=== PATIENT | male | born 1945 | race Caucasian/White ===

== ENCOUNTER 2023-07-04 13:44 | Emergency (ER) | payer MEDICARE, SELFPAY ==
[2023-07-04 13:51] VITALS: BP 135/67
--- NOTE | 2023-07-04 13:58 | ED.GENMED ---
History of Present Illness
<Cristal Luna PA-C - Last Filed: 07/04/23 17:15>
General
Chief Complaint: Fall
Source: patient
Exam Limitations: none
Time Seen by Provider: 07/04/23 13:57
Nursing documentation reviewed up to this point in time: agreed with
Travel History
Have you had any contact with someone who has COVID-19?: No
Do you have any symptoms of coronavirus? Fever > 100 degrees, chills, cough, shortness of breath, sore throat, loss of taste or smell, muscle aches, or headache?: No
History of Present Illness
History of Present Illness:
77-year-old male with a past medical history of aortic stenosis, JOHNSON, CAD, hypertension, A-fib on Eliquis presenting emergency department today with concerns of a cut to his right arm following a fall. Patient states that he 'stood up too fast
'and subsequently felt a little dizzy and whoozy, which caused him to trip and fall onto a glass bowl. Patient states that he is aware that he will get dizzy if he stands up too fast and he has had this issue for a while. Patient broke the glass
bowl. Patient states that he did not hit his head and was to get up on his own and has no troubles ambulating. Patient denies any dizziness, chest pain, shortness of at this time. Patient also has associated right-sided abdominal pain. He states
that the pain is worse when he takes a deep breath. Patient denies neck pain.
Past History
<Cristal Luna PA-C - Last Filed: 07/04/23 17:15>
Past History
ED Past Medical History: CAD, HTN, Hypercholesterolemia and Other (Sleep apnea)
ED Past Surgical History: Cardiac (Stents X2) and Orthopedic (Laminectomy, Bebuild with cadaver bone,)
Social History
Tobacco: Smoker
Alcohol: Occasional
Drug: None
Personal:
Living: alone
Review of Systems
<Cristal Luna PA-C - Last Filed: 07/04/23 17:15>
Review of Systems
All Other Systems: ROS reviewed and negative except as documented in HPI and ROS
Phy Exam
<Cristal Luna PA-C - Last Filed: 07/04/23 17:15>
Physical Exam
Physical Exam:
General: Pt is awake and alert, No acute distress.
Skin: Warm and dry. 7 cm linear laceration on the posterior surface of the right forearm.
Head: Normocephalic, atraumatic
Cardiac: Regular rate and rhythm with no murmurs.
PV: No clubbing/cyanosis/edema.
Pulmonary: Lung sounds are clear in all lobes bilaterally without rales, rhonchi, or wheezes.
Abdomen: Abdomen is soft. There is a 6x5 cm area of ecchymosis on the right lower abdomen, it is tender to palpation.
MSK:
Patient seen spontaneously moving cervical spine, no tenderness to palpation of the cervical spine.
Neuro: Patient is AAOx3. CN 2-12 intact.
Course
<Cristal Luna PA-C - Last Filed: 07/04/23 17:15>
Orders/Labs/Results
Orders:
Orders
07/04/23 14:14
Electrocardiogram (*1) Urgent
Reason for Study: Vertigo / Dizzy
CT Abd/pelvis W Iv Cont Urgent
Comment:
Reason For Exam: right flank pain/abdominal pain following tramua
EKG- Treatment ONCE
07/04/23 14:26
Complete Blood Count/With Diff Urgent
Comprehensive Metabolic Panel Urgent
07/04/23 16:14
Troponin I Urgent
Abnormal Lab Results
07/04/23
14:26
WBC 4.3 L 10^3/uL
(4.8-10.8)
RBC 3.33 L 10^6/uL
(4.70-6.10)
Hgb 11.6 L g/dL
(13.0-18.0)
Hct 33.4 L %
(39.0-52.0)
MCV 100.3 H fL
(80.0-94.0)
MCH 34.8 H pg
(27.0-31.0)
RDW 16.2 H %
(11.5-14.5)
Plt Count 91 L 10^3/uL
(130-400)
MPV 10.7 H fL
(7.4-10.4)
Absolute Monos (auto) 0.7 H 10^3/uL
(0.1-0.6)
Monocytes % 16.6 H %
(1.7-9.3)
Chloride 111 H mmol/L
(98-107)
Glucose 121 H mg/dl
(70-99)
AST 62 H U/L
(17-59)
ALT 51 H U/L
(0-50)
Albumin 3.3 L g/dl
(3.5-5.0)
07/04/23 14:26
07/04/23 14:26
Vital Signs
Initial and Last Documented VS:
Initial Vital Signs
Temp Pulse Resp BP Pulse Ox
98.7 F 68 18 135/67 98
07/04/23 13:51 07/04/23 13:51 07/04/23 13:51 07/04/23 13:51 07/04/23 13:51
Last Documented Vital Signs
Temp Pulse Resp BP Pulse Ox
98.7 F 71 16 120/71 96
07/04/23 13:51 07/04/23 14:40 07/04/23 14:40 07/04/23 14:40 07/04/23 14:17
<Juan Miller Betsy, DO - Last Filed: 07/04/23 14:16>
Orders/Labs/Results
Orders:
Orders
07/04/23 14:14
Electrocardiogram (*1) Urgent
Reason for Study: Vertigo / Dizzy
CT Abd/pelvis W Iv Cont Urgent
Comment:
Reason For Exam: right flank pain/abdominal pain following tramua
EKG- Treatment ONCE
07/04/23 14:26
Complete Blood Count/With Diff Urgent
Comprehensive Metabolic Panel Urgent
07/04/23 16:14
Troponin I Urgent
Abnormal Lab Results
07/04/23
14:26
WBC 4.3 L 10^3/uL
(4.8-10.8)
RBC 3.33 L 10^6/uL
(4.70-6.10)
Hgb 11.6 L g/dL
(13.0-18.0)
Hct 33.4 L %
(39.0-52.0)
MCV 100.3 H fL
(80.0-94.0)
MCH 34.8 H pg
(27.0-31.0)
RDW 16.2 H %
(11.5-14.5)
Plt Count 91 L 10^3/uL
(130-400)
MPV 10.7 H fL
(7.4-10.4)
Absolute Monos (auto) 0.7 H 10^3/uL
(0.1-0.6)
Monocytes % 16.6 H %
(1.7-9.3)
Chloride 111 H mmol/L
(98-107)
Glucose 121 H mg/dl
(70-99)
AST 62 H U/L
(17-59)
ALT 51 H U/L
(0-50)
Albumin 3.3 L g/dl
(3.5-5.0)
07/04/23 14:26
07/04/23 14:26
Vital Signs
Initial and Last Documented VS:
Initial Vital Signs
Temp Pulse Resp BP Pulse Ox
98.7 F 68 18 135/67 98
07/04/23 13:51 07/04/23 13:51 07/04/23 13:51 07/04/23 13:51 07/04/23 13:51
Last Documented Vital Signs
Temp Pulse Resp BP Pulse Ox
98.7 F 71 16 120/71 96
07/04/23 13:51 07/04/23 14:40 07/04/23 14:40 07/04/23 14:40 07/04/23 14:17
Procedures
<Cristal Luna PA-C - Last Filed: 07/04/23 17:15>
Laceration Closure
Right Arm:
Status of Wound: clean
Size of Wound in cm: 7
Description of Wound Edges: sharp
Preparation: cleaned with saline and cleaned with SurClens
Anesthesia: 1% Lidocaine with epi
Revision/Debridement: routine- no revision
Wound exploration: explored to base- no FB
Type of Closure: single layer closure
Skin Closure Material: 4-0 prolene
Number of sutures: 12
Additional information:
Patient tolerated procedure well
<Cristal Luna PA-C - Last Filed: 07/04/23 17:15>
MDM/Problems Addressed
Differential Diagnosis Includes:
laceration, abrasion, muscular contusion, foreign body, renal laceration, rib fracture
MDM/Problems Addressed:
abdominal pain
arm laceration
Chronic conditions affecting care: HTN, CAD and COPD
Acute Exacerbation and/or Progression of Chronic Illness: HTN
<Cristal Luna PA-C - Last Filed: 07/04/23 17:15>
*Pulse Oximetry
Patient hypoxic: no
*Critical Care Note
Total Time (30-74mins, 75-104mins- exclusive of procedures): Not Applicable
Data Reviewed
Review of Other/Old Records Reveals: Records (reviewed ER physician documentation from 09/13/22) and Discharge Summary (reviewed discharge summary from 07/07/2022)
Source: patient and records
Prescriptions/Medications Considered But Not Given:
considered medication for pain however patient states he is comfortable at this time
<Cristal Luna PA-C - Last Filed: 07/04/23 17:15>
Patient Management
Escalation/DeEscalation of care consider admission/obs:
77-year-old male with a past medical history of aortic stenosis, JOHNSON, CAD, hypertension, A-fib on Eliquis presenting emergency department today with concerns of a cut to his right arm following a fall. On exam, patient has no tenderness to
palpation of right upper extremity. On exam, patient has a 7 cm laceration on his right arm which was repaired with 4-0 Prolene sutures and thoroughly irrigated. Patient also has ecchymosis on the right side of his abdomen with associated pleuritic
pain. Due to pain on exam and due to the fact that patient is anticoagulated, CT scan of abdomen was performed which was negative for any intraabdominal hematomas or other signs of trauma, negative for rib fracture.
Patient states he felt dizzy which caused him to fall because he stood up too fast but no longer has any dizziness or symptoms. Patient has no murmurs on exam, patient's EKG is normal sinus rhythm with no ischemic changes. Patient stable for
discharge. Patient aware of wound care precautions and patient will follow up with his director personal.
ED Attending Note
<SONIA Walker Last Filed: 07/04/23 17:15>
-
Portions of this chart may have been created with voice recognition software.� Occasional wrong word or��sound alike� substitutions may have occurred due to the inherent limitations of voice recognition software.
<Juan Meyer, DO - Last Filed: 07/04/23 14:16>
ED Attending Note
Patient seen and examined by attending physician: Yes
I performed the substantive portion of visit, reviewed & personally made and approve the management plan that is documented in note by myself or SARI.: Yes
I performed a history and physical exam of patient and discussed management with resident, I reviewed resident's note and agree with documented findings and plan of care.: Yes
ED Attending Note:
I evaluated the patient at bedside. The patient does have some mild tenderness in the right CVA region and right mid axillary line but no true abdominal tenderness. Given his advanced age on Eliquis will obtain CT imaging
Discharge Plan
Departure
Patient Disposition: Home (Routine Discharge)
Date of Disposition: 07/04/23
Time of Disposition: 16:49
Patient with high blood pressure during this ER visit?: Yes
Condition: Good
Discharge Problem:
Fall, Laceration
Instructions: Laceration Repair With Stitches (DC), BLOOD PRESSURE
Prescriptions:
No Action
One Daily Multi-Vit w-Mineral 1 EACH tablet
1 ea PO DAILY
atorvastatin 80 MG tablet
80 mg PO HS
clopidogrel 75 MG tablet
75 mg PO DAILY Qty: 30 3RF
turmeric 400 mg Capsule
400 mg PO DAILY
citalopram [Celexa] 40 mg Tablet
40 mg PO DAILY
omeprazole 20 mg Capsule,Delayed Release(Dr/Ec)
20 mg PO DAILY
aspirin 81 mg Tablet,Chewable
81 mg PO DAILY
ezetimibe [Zetia] 10 mg Tablet
10 mg PO DAILY
apple cider vinegar 500 mg Tablet
500 mg PO DAILY
alfuzosin 10 mg Tablet Extended Release 24 Hr
10 mg PO DAILY
Patient Comments:
09/13/22- patient bottle in room from 2020
Visbiome 112.5 billion cell Capsule
1 cap PO DAILY
Benefiber Healthy Shape 5 gram/7.4 gram Powder
5 g PO DAILY
turmeric 400 mg Capsule
400 mg PO DAILY
Eliquis 5 mg tablet
5 mg PO BID Qty: 60 0RF
metoprolol succinate [Toprol XL] 25 mg tablet extended release 24 hr
25 mg PO DAILY Qty: 30 6RF
Referrals:
Jorje Briggs MD [Family Provider] -
Activity Restrictions/Additional Instructions:
Your CT scan of the abdomen did not show any evidence of intra-abdominal trauma.
Please keep the wound clean and dry for 24 hours. After 24 hours, you can clean the wound with mild soap and water. You can apply bacitracin once daily over the wound and change the dressing once daily.
Please return to the emergency department or your primary care provider to have the stitches removed in 7 to 10 days.
Please return emergency department should you experience erythema surrounding the wound, rashes, purulent drainage from the wound, wound dehiscence, fevers or chills, no other concerning signs or symptoms.
Please follow-up with your primary care provider.
Interventions
Interventions:
*General Assessment Last Done: 07/04/23 17:05
*Nursing Disposition Last Done: 07/04/23 17:05
ED-Musculoskeletal Assessment Last Done: 07/04/23 14:00
ED- Neurological Assessment Last Done: 07/04/23 14:00
ED-Skin Assessment Last Done: 07/04/23 14:00
[2023-07-04 14:17] VITALS: BMI 30.6
[2023-07-04 14:40] VITALS: BP 120/71
[2023-07-04 14:44] LABS: % Basophils 0.9 % (0-2); % Immature Granulocytes 0.2 % (0-0.5); % Lymphocytes 30.5 % (20.5-51.1); % Monocytes 16.6 % (1.7-9.3); % Neutrophils 48.8 % (42.2-75.2); Absolute Eosinophils 0.1 10^3/uL (0-0.7); Absolute Lymphocytes 1.3 10^3/uL (1.2-3.4); Absolute Monocytes 0.7 10^3/uL (0.1-0.6); Absolute Neutrophils 2.1 10^3/uL (1.4-6.5); Hematocrit 33.4 % (39.0-52.0); Hemoglobin 11.6 g/dL (13.0-18.0); Mean Corp Hgb Conc. 34.7 g/dL (33.0-37.0); Mean Corpuscular Hgb 34.8 pg (27.0-31.0); Mean Corpuscular Volume 100.3 fL (80.0-94.0); Mean Platelet Volume 10.7 fL (7.4-10.4); Nucleated Red Blood Cells % 0 % (-); Platelet Count 91 10^3/uL (130-400); Red Blood Cell Count 3.33 10^6/uL (4.70-6.10); Red Cell Dist. Width 16.2 % (11.5-14.5); White Blood Cell Count 4.3 10^3/uL (4.8-10.8)
[2023-07-04 15:01] LABS: ALT (SGPT) 51 U/L (0-50); AST (SGOT) 62 U/L (17-59); Albumin 3.3 g/dl (3.5-5.0); Alkaline Phosphatase 121 U/L (38-126); Blood Urea Nitrogen 14 mg/dl (9-20); Carbon Dioxide 24 mmol/L (22-30); Chloride 111 mmol/L (98-107); Estimated Creatinine Clearance 42 ml/min; Glucose 121 mg/dl (70-99); Potassium 4.3 mmol/L (3.5-5.1); Sodium 136 mmol/L (135-145); Total Protein 6.4 g/dl (6.3-8.2); eGFR > 60.00
[2023-07-04 16:47] LABS: Troponin I < 0.012 ng/ml
== END 2023-07-04 17:05 | disposition home or self-care (01) ==
LOC: EMR 13:44
PROVIDERS: Physician Assistant; EMERGENCY PHYSICIAN Emergency Medicine; FAMILY PHYSICIAN Family Medicine
DX: S41.111A Laceration without foreign body of right upper arm, initial encounter (principal); W01.0XXA Fall on same level from slipping, tripping and stumbling without subsequent striking against object, initial encounter; I35.0 Nonrheumatic aortic (valve) stenosis; K75.81 Nonalcoholic steatohepatitis (NASH); I25.10 Atherosclerotic heart disease of native coronary artery without angina pectoris; I10 Essential (primary) hypertension; I48.91 Unspecified atrial fibrillation; E78.00 Pure hypercholesterolemia, unspecified; G47.30 Sleep apnea, unspecified; F17.200 Nicotine dependence, unspecified, uncomplicated; J44.9 Chronic obstructive pulmonary disease, unspecified; Z79.01 Long term (current) use of anticoagulants; Z95.5 Presence of coronary angioplasty implant and graft
CPT/HCPCS: 99284; 12002; 74177; 80053; 84484; 85025; 93005; Q9967

== ENCOUNTER → 2023-08-02 14:51 | Outpatient (REF) | payer MEDICARE, SELFPAY ==
[2023-08-02 15:57] LABS: % Basophils 0.9 % (0-2); % Eosinophils 1.5 % (0-6); % Immature Granulocytes 0.3 % (0-0.5); % Lymphocytes 26.2 % (20.5-51.1); % Monocytes 14.4 % (1.7-9.3); % Neutrophils 56.7 % (42.2-75.2); Absolute Eosinophils 0.1 10^3/uL (0-0.7); Absolute Lymphocytes 0.9 10^3/uL (1.2-3.4); Absolute Monocytes 0.5 10^3/uL (0.1-0.6); Absolute Neutrophils 1.9 10^3/uL (1.4-6.5); Hematocrit 34.3 % (39.0-52.0); Hemoglobin 12.2 g/dL (13.0-18.0); Mean Corp Hgb Conc. 35.6 g/dL (33.0-37.0); Mean Corpuscular Hgb 35.5 pg (27.0-31.0); Mean Corpuscular Volume 99.7 fL (80.0-94.0); Nucleated Red Blood Cells % 0 % (-); Platelet Count 70 10^3/uL (130-400); Red Blood Cell Count 3.44 10^6/uL (4.70-6.10); White Blood Cell Count 3.4 10^3/uL (4.8-10.8)
[2023-08-02 16:27] LABS: ALT (SGPT) 51 U/L (0-50); AST (SGOT) 54 U/L (17-59); Albumin 3.3 g/dl (3.5-5.0); Alkaline Phosphatase 139 U/L (38-126); Blood Urea Nitrogen 20 mg/dl (9-20); Calcium 9.2 mg/dl (8.4-10.2); Carbon Dioxide 21 mmol/L (22-30); Chloride 110 mmol/L (98-107); Glucose 122 mg/dl (70-99); Iron 150 ug/dl (49-181); Magnesium 1.9 mg/dl (1.6-2.3); Sodium 134 mmol/L (135-145); Total Bilirubin 0.9 mg/dl (0.2-1.3); Total Protein 6.5 g/dl (6.3-8.2); eGFR 56.23
[2023-08-02 16:59] LABS: TSH 1.03 uIU/ml (0.47-4.68)
[2023-08-02 17:34] LABS: Folate 14.3 ng/ml (2.76-20); Vitamin B12 > 1000 pg/ml (239-931)
== END ==
LOC: REG 14:51
PROVIDERS: ATTENDING PHYSICIAN Nurse Practitioner Family
DX: R42 Dizziness and giddiness (principal); R73.09 Other abnormal glucose; D64.9 Anemia, unspecified; R74.8 Abnormal levels of other serum enzymes; I95.9 Hypotension, unspecified
CPT/HCPCS: 36415; 80053; 82607; 82728; 82746; 83540; 83735; 84443; 85025

== ENCOUNTER 2023-08-03 13:04 | Emergency (ER) | payer MEDICARE, SELFPAY ==
[2023-08-03 13:11] VITALS: BP 116/74
[2023-08-03 13:42] LABS: % Basophils 0.5 % (0-2); % Eosinophils 1.7 % (0-6); % Immature Granulocytes 0.2 % (0-0.5); % Lymphocytes 23.8 % (20.5-51.1); % Monocytes 16.6 % (1.7-9.3); % Neutrophils 57.2 % (42.2-75.2); Absolute Eosinophils 0.1 10^3/uL (0-0.7); Absolute Monocytes 0.7 10^3/uL (0.1-0.6); Absolute Neutrophils 2.3 10^3/uL (1.4-6.5); Hematocrit 36.5 % (39.0-52.0); Hemoglobin 12.5 g/dL (13.0-18.0); Mean Corp Hgb Conc. 34.2 g/dL (33.0-37.0); Mean Corpuscular Hgb 34.8 pg (27.0-31.0); Mean Corpuscular Volume 101.7 fL (80.0-94.0); Mean Platelet Volume 10.6 fL (7.4-10.4); Nucleated Red Blood Cells % 0 % (-); Platelet Count 75 10^3/uL (130-400); Red Blood Cell Count 3.59 10^6/uL (4.70-6.10); Red Cell Dist. Width 15.3 % (11.5-14.5)
[2023-08-03 13:53] LABS: ALT (SGPT) 51 U/L (0-50); AST (SGOT) 58 U/L (17-59); Albumin 3.5 g/dl (3.5-5.0); Alkaline Phosphatase 151 U/L (38-126); Blood Urea Nitrogen 21 mg/dl (9-20); Calcium 9.2 mg/dl (8.4-10.2); Chloride 109 mmol/L (98-107); Glucose 139 mg/dl (70-99); Sodium 134 mmol/L (135-145); Total Bilirubin 0.9 mg/dl (0.2-1.3); Total Protein 6.6 g/dl (6.3-8.2); eGFR 51.45
[2023-08-03 14:09] LABS: Carbon Dioxide 21 mmol/L (22-30); Potassium 3.9 mmol/L (3.5-5.1)
--- NOTE | 2023-08-03 15:42 | ED.GENMED ---
History of Present Illness
General
Chief Complaint: Blood Pressure Problem
Time Seen by Provider: 08/03/23 15:42
Travel History
Have you had any contact with someone who has COVID-19?: No
Do you have any symptoms of coronavirus? Fever > 100 degrees, chills, cough, shortness of breath, sore throat, loss of taste or smell, muscle aches, or headache?: No
History of Present Illness
History of Present Illness:
HPI: Patient was sent to the ED by PMD due to concerns for low blood pressure. Apparently the office visit showed a blood pressure reading of 80/63. Daughter reports some weakness and may be some confusion as well. He apparently was here couple
weeks ago with stitches. There has been no other changes to his medication. He is not sure what medications that he takes but at that time he was on Toprol 25 mg daily as his only BP med.
EXAM:
GENERAL: Appears slightly weak
HEENT: Slightly dry oral mucosa
CARDIOVASCULAR: No murmurs, normal heart rate, regular rhythm, No chest wall tenderness
PULMONARY: No respiratory distress, breath sounds are clear and equal
ABDOMEN: Soft with no peritoneal signs, no tenderness
NEUROLOGIC: Excellent strength all extremities, no coordination deficits
PSYCHIATRIC: Appropriate mental status, normal insight and judgement
EXTREMITIES: Nontender, no edema, moves all extremities equally
SKIN: No rash, no lesions
TIME OF INITIAL ENCOUNTER: 4 PM
NUMBER AND COMPLEXITY OF PROBLEMS ADDRESSED AT THE ENCOUNTER
� Chronic conditions affecting care: Pancytopenia, CAD, COPD, aortic stenosis, high blood pressure, hyperlipidemia, nonalcoholic cirrhosis
� Acute Exacerbation and/or Progression of Chronic Illness: This is an acute problem
� Differential Diagnosis includes: Medication overuse, dehydration, vital signs not consistent with sepsis.
AMOUNT AND/OR COMPLEXITY OF DATA TO BE REVIEWED AND ANALYZED
� I performed an independent evaluation of and my interpretation is:
EKG:
CT:
X-rays:
Laboratory Studies: Patient is pancytopenic, creatinine is 1.4 but this is similar to prior. Negative leukocyte esterase and negative nitrate on urinalysis.
Other:
� Review of other/old records: I reviewed nuclear stress test from 01/16/2023 that indicated the stress EKG was equivocal for ischemia in the nuclear portion was normal, EF normal, and overall was considered low risk study
� Clinical information was obtained by an independent historian: I spoke to the daughter at bedside
� Prescriptions/Medications Considered but not given:
� Further testing considered but not performed:
RISK OF COMPLICATIONS AND/OR MORBIDITY OR MORTALITY OF PATIENT MANAGEMENT
� Social determinants of health affecting care: Lives at home
� Discussion with other providers:
� Escalation of care including admission/observation vs risk of discharge considered: Will give IV fluids and reassess however the patient's blood pressure has spontaneously improved upon arrival here. Patient's lab work is
relatively unremarkable. Unclear etiology of patient's symptoms. On reassessment, the patient has no significant changes. Vital signs are unremarkable at time of discharge.
Past History
Past History
ED Past Medical History: CAD, HTN, Hypercholesterolemia and Other (Sleep apnea)
ED Past Surgical History: Cardiac (Stents X2) and Orthopedic (Laminectomy, Bebuild with cadaver bone,)
Social History
Tobacco: Smoker
Alcohol: Occasional
Drug: None
Personal:
Living: alone
Phy Exam
Physical Exam
Physical Exam:
See HPI
Course
Orders/Labs/Results
Orders:
Orders
08/03/23 13:19
Complete Blood Count/With Diff Urgent
Comprehensive Metabolic Panel Urgent
08/03/23 15:43
0.9% Sodium Chloride 500 ml [Nss] 500 ml IV BOLUS
08/03/23 16:35
Urinalysis Reflex To Culture Urgent
Date Specimen was Collected: 08/03/23
Time Specimen was Collected: 16:30
Abnormal Lab Results
08/03/23 08/03/23
13:19 16:35
WBC 4.0 L 10^3/uL
(4.8-10.8)
RBC 3.59 L 10^6/uL
(4.70-6.10)
Hgb 12.5 L g/dL
(13.0-18.0)
Hct 36.5 L %
(39.0-52.0)
MCV 101.7 H fL
(80.0-94.0)
MCH 34.8 H pg
(27.0-31.0)
RDW 15.3 H %
(11.5-14.5)
Plt Count 75 L 10^3/uL
(130-400)
MPV 10.6 H fL
(7.4-10.4)
Absolute Lymphs (auto) 1.0 L 10^3/uL
(1.2-3.4)
Absolute Monos (auto) 0.7 H 10^3/uL
(0.1-0.6)
Monocytes % 16.6 H %
(1.7-9.3)
Sodium 134 L mmol/L
(135-145)
Chloride 109 H mmol/L
(98-107)
Carbon Dioxide 21 L mmol/L
(22-30)
BUN 21 H mg/dl
(9-20)
Creatinine 1.4 H mg/dL
(0.7-1.3)
Glucose 139 H mg/dl
(70-99)
ALT 51 H U/L
(0-50)
Alkaline Phosphatase 151 H U/L
(38-126)
Urine Ketones Trace A
(Negative)
Urine Bilirubin 1+ A
(Negative)
Urine Glucose Trace A
(Negative)
08/03/23 13:19
08/03/23 13:19
Vital Signs
Initial and Last Documented VS:
Initial Vital Signs
Temp Pulse Resp BP Pulse Ox
98.7 F 58 18 116/74 96
08/03/23 13:11 08/03/23 13:11 08/03/23 13:11 08/03/23 13:11 08/03/23 13:11
Last Documented Vital Signs
Temp Pulse Resp BP Pulse Ox
98.7 F 58 18 108/73 96
08/03/23 13:11 08/03/23 13:11 08/03/23 13:11 08/03/23 16:00 08/03/23 16:24
*Critical Care Note
Total Time (30-74mins, 75-104mins- exclusive of procedures): Not Applicable
ED Attending Note
-
Portions of this chart may have been created with voice recognition software.� Occasional wrong word or��sound alike� substitutions may have occurred due to the inherent limitations of voice recognition software.
Discharge Plan
Departure
Patient Disposition: Home (Routine Discharge)
Date of Disposition: 08/03/23
Time of Disposition: 17:23
Patient with high blood pressure during this ER visit?: Yes
Discharge Problem:
Acute hypotension
Prescriptions:
No Action
One Daily Multi-Vit w-Mineral 1 EACH tablet
1 ea PO DAILY
atorvastatin 80 MG tablet
80 mg PO HS
clopidogrel 75 MG tablet
75 mg PO DAILY Qty: 30 3RF
turmeric 400 mg Capsule
400 mg PO DAILY
citalopram [Celexa] 40 mg Tablet
40 mg PO DAILY
omeprazole 20 mg Capsule,Delayed Release(Dr/Ec)
20 mg PO DAILY
aspirin 81 mg Tablet,Chewable
81 mg PO DAILY
ezetimibe [Zetia] 10 mg Tablet
10 mg PO DAILY
apple cider vinegar 500 mg Tablet
500 mg PO DAILY
alfuzosin 10 mg Tablet Extended Release 24 Hr
10 mg PO DAILY
Patient Comments:
09/13/22- patient bottle in room from 2020
Visbiome 112.5 billion cell Capsule
1 cap PO DAILY
Benefiber Healthy Shape 5 gram/7.4 gram Powder
5 g PO DAILY
turmeric 400 mg Capsule
400 mg PO DAILY
Eliquis 5 mg tablet
5 mg PO BID Qty: 60 0RF
metoprolol succinate [Toprol XL] 25 mg tablet extended release 24 hr
25 mg PO DAILY Qty: 30 6RF
Referrals:
Jorje Briggs MD [Family Provider] -
Activity Restrictions/Additional Instructions:
Your blood pressure here has been normal. It has not been low. However since it was low earlier, I recommend that you cut the metoprolol succinate (Toprol) 25 mg in half so that you would be taking 12.5 mg each morning. Here if worse.
Interventions
Interventions:
*Risk Screen - Suicide Last Done: 08/03/23 13:11
*General Assessment Last Done: 08/03/23 13:11
*Neglect/Abuse Screening Last Done: 08/03/23 13:11
*Nursing Disposition Last Done: 08/03/23 18:22
ED- Cardiac Assessment Last Done: 08/03/23 16:11
ED- Neurological Assessment Last Done: 08/03/23 16:11
ED- Pulmonary Assessment Last Done: 08/03/23 16:11
Discharge Date and Time
Discharge Date/Time: 08/03/23 18:15
Print Language: SPANISH
[2023-08-03 15:54] VITALS: BP 110/75
[2023-08-03 16:00] VITALS: BP 108/73
[2023-08-03] MEDS: NSS 500 IV (16:07)
[2023-08-03 16:36] VITALS: BMI 28.9
[2023-08-03 16:45] LABS: Urine Albumin Trace (Neg - Trace); Urine Bilirubin 1+ (Negative); Urine Character Clear (Clear); Urine Color Yellow; Urine Glucose Trace (Negative); Urine Ketone Trace (Negative); Urine Leukocyte Negative (Negative); Urine Nitrite Negative (Negative); Urine Occult Blood Negative (Negative); Urine Specific Gravity 1.025 (<1.030); Urine Urobilinogen 1+ (Neg - 1+)
== END 2023-08-03 18:15 | disposition home or self-care (01) ==
LOC: EMR 13:04
PROVIDERS: Emergency Medicine; EMERGENCY PHYSICIAN Emergency Medicine; FAMILY PHYSICIAN Family Medicine
DX: I95.9 Hypotension, unspecified (principal); I25.10 Atherosclerotic heart disease of native coronary artery without angina pectoris; J44.89 Other specified chronic obstructive pulmonary disease; F17.200 Nicotine dependence, unspecified, uncomplicated; I35.0 Nonrheumatic aortic (valve) stenosis; I10 Essential (primary) hypertension; K74.60 Unspecified cirrhosis of liver; E78.00 Pure hypercholesterolemia, unspecified; Z95.5 Presence of coronary angioplasty implant and graft
CPT/HCPCS: 99284; 96360; 80053; 81003; 85025

== ENCOUNTER → 2023-10-04 15:13 | Outpatient (REF) | payer MEDICARE, SELFPAY ==
[2023-10-04 17:22] LABS: % Eosinophils 3.4 % (0-6); % Immature Granulocytes 0.3 % (0-0.5); % Lymphocytes 36.9 % (20.5-51.1); % Monocytes 16.9 % (1.7-9.3); % Neutrophils 41.5 % (42.2-75.2); Absolute Eosinophils 0.1 10^3/uL (0-0.7); Absolute Lymphocytes 1.1 10^3/uL (1.2-3.4); Absolute Monocytes 0.5 10^3/uL (0.1-0.6); Absolute Neutrophils 1.2 10^3/uL (1.4-6.5); Mean Corp Hgb Conc. 34.3 g/dL (33.0-37.0); Mean Corpuscular Hgb 34.5 pg (27.0-31.0); Mean Corpuscular Volume 100.6 fL (80.0-94.0); Mean Platelet Volume 11.5 fL (7.4-10.4); Nucleated Red Blood Cells % 0 % (-); Platelet Count 73 10^3/uL (130-400); Red Blood Cell Count 3.48 10^6/uL (4.70-6.10); Red Cell Dist. Width 14.8 % (11.5-14.5)
[2023-10-04 17:35] LABS: ALT (SGPT) 51 U/L (0-50); AST (SGOT) 56 U/L (17-59); Albumin 3.3 g/dl (3.5-5.0); Alkaline Phosphatase 126 U/L (38-126); Blood Urea Nitrogen 16 mg/dl (9-20); Calcium 9.4 mg/dl (8.4-10.2); Carbon Dioxide 27 mmol/L (22-30); Chloride 108 mmol/L (98-107); Glucose 101 mg/dl (70-99); Potassium 4.6 mmol/L (3.5-5.1); Sodium 140 mmol/L (135-145); Total Bilirubin 1.4 mg/dl (0.2-1.3); Total Protein 6.3 g/dl (6.3-8.2); eGFR 55.88
== END ==
LOC: REG 15:13
PROVIDERS: ATTENDING PHYSICIAN Nurse Practitioner Family
DX: D61.818 Other pancytopenia (principal); I95.9 Hypotension, unspecified; Z09 Encounter for follow-up examination after completed treatment for conditions other than malignant neoplasm; I95.89 Other hypotension
CPT/HCPCS: 36415; 80053; 85025

== ENCOUNTER → 2023-11-27 08:46 | Outpatient (REF) | payer MEDICARE, SELFPAY ==
[2023-11-27 10:17] LABS: % Basophils 0.7 % (0-2); % Eosinophils 6.1 % (0-6); % Lymphocytes 33.4 % (20.5-51.1); % Monocytes 15.9 % (1.7-9.3); % Neutrophils 43.9 % (42.2-75.2); Absolute Eosinophils 0.3 10^3/uL (0-0.7); Absolute Lymphocytes 1.5 10^3/uL (1.2-3.4); Absolute Monocytes 0.7 10^3/uL (0.1-0.6); Hemoglobin 11.6 g/dL (13.0-18.0); Mean Corp Hgb Conc. 35.2 g/dL (33.0-37.0); Mean Corpuscular Hgb 35.6 pg (27.0-31.0); Mean Corpuscular Volume 101.2 fL (80.0-94.0); Nucleated Red Blood Cells % 0 % (-); Red Blood Cell Count 3.26 10^6/uL (4.70-6.10); Red Cell Dist. Width 15.3 % (11.5-14.5); Reticulocyte Count 0.9 % (0.4-2.8); White Blood Cell Count 4.5 10^3/uL (4.8-10.8)
[2023-11-27 10:26] LABS: APTT 36.6 Sec (23.4-35.0); INR 1.53; PT 18.2 Sec (11.4-14.6)
[2023-11-27 10:27] LABS: Fibrinogen 193 MG/DL (199-459)
[2023-11-27 10:39] LABS: Mean Platelet Volume 11.8 fL (7.4-10.4); Platelet Count 76 10^3/uL (130-400)
[2023-11-27 10:51] LABS: Erythrocyte Sed Rate 42 mm/hour (0-20)
[2023-11-27 14:31] LABS: ALT (SGPT) 113 U/L (0-50); AST (SGOT) 88 U/L (17-59); Albumin 3.2 g/dl (3.5-5.0); Alkaline Phosphatase 222 U/L (38-126); Blood Urea Nitrogen 18 mg/dl (9-20); Direct Bilirubin 0.5 mg/dl (0.0-0.4); Iron 215 ug/dl (49-181); LDH 280 U/L (120-246); Total Bilirubin 1.4 mg/dl (0.2-1.3); Total Protein 6.2 g/dl (6.3-8.2)
[2023-11-27 14:40] LABS: Percent Saturation 89 % (20-50); Total Iron Binding Capacity 240 ug/dl (261-462)
[2023-11-27 14:44] LABS: PSA, Total - Screen 1.64 ng/ml (0.0-4.0)
[2023-11-27 15:19] LABS: Folate 16.4 ng/ml (2.76-20); Vitamin B12 > 1000 pg/ml (239-931)
[2023-11-28 22:20] LABS: Erythropoietin (EPO) 48 mU/mL (4-27)
[2023-11-28 23:12] LABS: Haptoglobin <10 mg/dL (30-200)
[2023-12-01 01:49] LABS: Albumin 3.35 g/dL (3.75-5.01); Alpha 1 Globulin 0.13 g/dL (0.19-0.46); Alpha 2 Globulin 0.53 g/dL (0.48-1.05); Free Kappa Light Chains,Quant 70.24 mg/L (3.30-19.40); Free Lambda Light Chains,Quant 45.45 mg/L (5.71-26.30); IgA 422 mg/dL (68-408); IgG 1347 mg/dL (768-1632); IgM 153 mg/dL (35-263); Immunofixation Electrophoresis IFE Done; Kappa/Lambda Fr Light Ratio 1.55 (0.26-1.65); Total Protein-Electrophoresis 6.2 g/dL (6.3-8.2)
== END ==
LOC: REG 08:46
PROVIDERS: ATTENDING PHYSICIAN Internal Medicine Hematology & Oncology; FAMILY PHYSICIAN Family Medicine
DX: D61.818 Other pancytopenia (principal); D64.9 Anemia, unspecified; Z12.5 Encounter for screening for malignant neoplasm of prostate
CPT/HCPCS: 36415; 80076; 82565; 82607; 82668; 82746; 82784; 83010; 83521; 83540; 83550; 83615; 84155; 84165; 84443; 84520; 85025; 85045; 85384; 85610; 85652; 85730; 86334; G0103

== ENCOUNTER → 2023-12-17 06:53 | Outpatient (REF) | payer MEDICARE, SELFPAY | LOC: RAD 06:53 | PROVIDERS: ATTENDING PHYSICIAN Internal Medicine Hematology & Oncology; FAMILY PHYSICIAN Family Medicine | DX: D61.818 Other pancytopenia (principal); D64.9 Anemia, unspecified | CPT/HCPCS: 76705 ==

== ENCOUNTER 2023-12-24 21:44 | Inpatient (IN) | payer MEDICARE, SELFPAY ==
[2023-12-24] VITALS (10 sets, daily range): BP systolic 111–142; BP diastolic 68–95; PULSE 101; BMI 34.3; BMI 30.7
[2023-12-24 18:12] LABS: % Basophils 0.2 % (0-2); % Eosinophils 0.2 % (0-6); % Immature Granulocytes 0.3 % (0-0.5); % Lymphocytes 11.1 % (20.5-51.1); % Monocytes 10.2 % (1.7-9.3); Absolute Lymphocytes 1.4 10^3/uL (1.2-3.4); Absolute Monocytes 1.3 10^3/uL (0.1-0.6); Hematocrit 33.4 % (39.0-52.0); Hemoglobin 12.3 g/dL (13.0-18.0); Mean Corp Hgb Conc. 36.8 g/dL (33.0-37.0); Mean Corpuscular Hgb 35.4 pg (27.0-31.0); Mean Corpuscular Volume 96.3 fL (80.0-94.0); Mean Platelet Volume 12.6 fL (7.4-10.4); Nucleated Red Blood Cells % 0 % (-); Platelet Count 113 10^3/uL (130-400); Red Blood Cell Count 3.47 10^6/uL (4.70-6.10); Red Cell Dist. Width 17.2 % (11.5-14.5); White Blood Cell Count 12.8 10^3/uL (4.8-10.8)
[2023-12-24 18:31] LABS: Albumin 2.9 g/dl (3.5-5.0); Alkaline Phosphatase 294 U/L (38-126); Blood Urea Nitrogen 82 mg/dl (9-20); Calcium 7.6 mg/dl (8.4-10.2); Carbon Dioxide 11 mmol/L (22-30); Chloride 103 mmol/L (98-107); Glucose 102 mg/dl (70-99); Potassium 5.4 mmol/L (3.5-5.1); Sodium 135 mmol/L (135-145); Total Bilirubin 5.4 mg/dl (0.2-1.3); Total Protein 6.3 g/dl (6.3-8.2); eGFR 5.87
--- NOTE | 2023-12-24 18:31 | EDRN ---
Lab just called for critical values of creat 8.5 and CO2 11 at this time.
[2023-12-24 18:51] LABS: ALT (SGPT) 599 U/L (0-50); AST (SGOT) 2155 U/L (17-59)
--- NOTE | 2023-12-24 19:05 | EDRN ---
At 1903 this RN TT'd Obdulia VIDAL about elevated Liver panel lab results. Harman VIDAL read the TT.
--- NOTE | 2023-12-24 19:09 | ED.GENMED ---
History of Present Illness
<MARCY Liu - Last Filed: 12/24/23 21:42>
General
Chief Complaint: Weakness
Source: patient and family
Exam Limitations: none
Time Seen by Provider: 12/24/23 18:39
History of Present Illness
History of Present Illness:
This is a 78 year old male that comes in with c/o diarrhea and weakness. Family states that he has had diarrhea and has not been eating or drinking. States that he seemed a little confused and was very weak. Patient states that he has felt SOB, abd
pain, nausea, vomiting, with the diarrhea. States that he vomited in the waiting room. Denies any fever, chills, chest pain, headache, dizziness, urinary burning.
Past History
<MARCY Liu - Last Filed: 12/24/23 21:42>
Past History
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
ED Past Surgical History: Cardiac (Stents X7), Orthopedic (Laminectomy, Rebuild with cadaver bone, Right shoulder surgery, bilateral knee replacements) and Other (cataracts, eye brow lift)
Social History
Tobacco: Former smoker
Alcohol: None
Drug: None
Personal:
Living: alone
Review of Systems
<MARCY Liu - Last Filed: 12/24/23 21:42>
Review of Systems
All Other Systems: ROS reviewed and negative except as documented in HPI and ROS
Constitutional: Reports no symptoms; Denies fever or chills
EENT: Reports no symptoms
Respiratory: Reports trouble breathing; Denies cough
Cardiac: Reports no symptoms; Denies chest pain
ABD/GI: Reports abdominal pain, nausea, vomiting and diarrhea
: Reports no symptoms; Denies dysuria, frequency or urgency
Musculoskeletal: Reports no symptoms
Skin: Reports no symptoms
Neurological: Reports no symptoms; Denies dizzy or headache
Psychiatric: Reports no symptoms
Phy Exam
<MARCY Liu - Last Filed: 12/24/23 21:42>
General Physical Exam
General Presentation: no apparent distress
General age: appears stated age
General Skin: warm and dry
General Habitus: elderly
General Mental: alert
General Hydration: dry mucous membranes
ENT Exam
ENT Exam: TM's normal, pharynx normal and neck supple
Eye Exam
Eye Exam: EOMI
Cardiovascular Exam
Cardiovascular Exam: regular rate/rhythm and normal peripheral pulses
Pulmonary Exam
Pulmonary Exam: lungs clear, no respiratory distress, no rales, chest non tender, no crackles, no rhonchi, no wheezing and no cough
Gastrointestinal Exam
Gastrointestinal Exam: soft, no pulsatile mass, ascites, tender (RUQ tenderness with palpation) and other (Very hypoactive bowel sounds)
Musculoskeletal Exam
Musculoskeletal Exam: full ROM and no edema
Skin Exam
Skin Exam: warm/dry and pallor
Psychiatric Exam
Psychiatric Exam: normal mood/affect
Course
<MARCY Liu - Last Filed: 12/24/23 21:42>
Orders/Labs/Results
Orders:
Orders
12/24/23 18:00
Acetaminophen Urgent
Comment: ADD ON
Complete Blood Count/With Diff Urgent
Comprehensive Metabolic Panel Urgent
Direct Bilirubin Urgent
Comment: ADD ON
Lipase Urgent
Comment: ADD ON
12/24/23 18:52
0.9% Sodium Chloride 1000 ml [Nss] 1,000 ml IV BOLUS
US Abdomen Complete/Upper Urgent
Comment:
Reason For Exam: Right upper abd pain
12/24/23 18:53
CR Chest - 2 Views Urgent
Comment:
Reason For Exam: SOB
12/24/23 19:11
Electrocardiogram (*1) Urgent
Reason for Study: Shortness of Breath
EKG- Treatment ONCE
Troponin I Urgent
12/24/23 19:19
Add On- LAB Urgent
Tests Added?: Direct starr
12/24/23 19:35
Add On- LAB Urgent
Tests Added?: lipase
12/24/23 19:51
COVID-19 Antigen Stat
Source: Nasal Swab
Lactic Acid Urgent
PT/INR [Prothrombin Time] Stat
PTT Urgent
12/24/23 20:30
Dextrose 5%/Water 1000 ml [D5w] 1,000 ml Sodium Bicarbonate 150 meq IV 200 mls/hr
12/24/23 20:36
Admit/Transfer Patient As Directed
Co-Sign Provider:
Level of Care: Inpatient admission
Assign to:: IMU- Intermediate Care
Physician / Group: teressa
Diagnosis: decompensated liver disease
Reason for Hospitalization: decompensated liver disease
Expected length of stay greater than two midnights?: Yes
ELOS- Estimated Length of Stay in days: 3
I certify the patient meets the requirements for IP care: Yes
12/24/23 20:37
PRN Pain Medication Management As Directed
May give lesser potent ordered pain med per pt: Yes
preference::
Protocol:: Medication orders for pain may be administered in a
manner that supports deferring to patient preference
when the pt is:
- Requesting an ordered lesser potent pain medication.
Least to most potent pain medications are defined
as: acetaminophen < NSAID < tramadol < opioids
(morphine, oxycodone, hydromorphone).
- Requesting a lesser dose of the same medication IF
ORDERED.
- Requesting a less intrusive route of administration
if both routes are prescribed by the provider (PO <
IV).
12/24/23 20:38
Code Status As Directed
Resuscitation Status: Full Code
12/24/23 20:54
Urinalysis Reflex To Culture Urgent
Date Specimen was Collected: 12/24/23
Time Specimen was Collected: 20:50
Urine Drug Abuse Screen Urgent
Date Specimen was Collected: 12/24/23
Time Specimen was Collected: 20:50
Urine Microscopic Reflex Cult Urgent
Urine Culture Urgent
MARVIN Source: U
Specimen Description:
Date Specimen was Collected: 12/24/23
Time Specimen was Collected: 20:50
12/24/23 21:00
Flush (0.9% Sodium Chloride) [Flush (Nss)] See Dose Instructions IV PER PROTOCOL
12/24/23 21:04
Ammonia Stat
12/24/23 21:09
0.9% Sodium Chloride 1000 ml [Nss] 1,000 ml IV BOLUS
12/24/23 21:18
Add On- LAB Urgent
Comments:: urine in lab
Tests Added?: urine drug screen
12/24/23 21:19
Hepatitis A IgM Antibody Urgent
Hepatitis B Core Ab, IgM Urgent
Hepatitis B Surface Antibody Urgent
Hepatitis B Surface Antigen Urgent
Hepatitis C Antibody Urgent
Blood Culture Urgent
MARVIN Source: Blood/Venous
Specimen Description:
12/24/23 21:27
Urine Creatinine Stat
Urine Potassium Stat
Urine Sodium Stat
12/24/23 21:30
Venous Blood Gas Urgent
%Oxygen/Room Air: ra
12/24/23 21:49
Blood Culture Routine
MARVIN Source: Blood/Venous
Specimen Description:
12/25/23 00:30
BMP [Basic Metabolic Panel] Stat
Abnormal Lab Results
12/24/23 12/24/23 12/24/23
18:00 19:11 19:51
WBC 12.8 H 10^3/uL
(4.8-10.8)
RBC 3.47 L 10^6/uL
(4.70-6.10)
Hgb 12.3 L g/dL
(13.0-18.0)
Hct 33.4 L %
(39.0-52.0)
MCV 96.3 H fL
(80.0-94.0)
MCH 35.4 H pg
(27.0-31.0)
RDW 17.2 H %
(11.5-14.5)
Plt Count 113 L 10^3/uL
(130-400)
MPV 12.6 H fL
(7.4-10.4)
Absolute Neuts (auto) 10.0 H 10^3/uL
(1.4-6.5)
Absolute Monos (auto) 1.3 H 10^3/uL
(0.1-0.6)
Neutrophils % 78.0 H %
(42.2-75.2)
Lymphocytes % 11.1 L %
(20.5-51.1)
Monocytes % 10.2 H %
(1.7-9.3)
PT 26.6 H Sec
(11.4-14.6)
APTT 51.0 H Sec
(23.4-35.0)
VBG pH
VBG pCO2
VBG pO2
VBG HCO3
Potassium 5.4 H mmol/L
(3.5-5.1)
Carbon Dioxide 11 L* mmol/L
(22-30)
BUN 82 H mg/dl
(9-20)
Creatinine 8.5 H* mg/dL
(0.7-1.3)
Glucose 102 H mg/dl
(70-99)
Lactic Acid 6.8 H* mmol/L
(0.7-2.0)
Calcium 7.6 L mg/dl
(8.4-10.2)
Total Bilirubin 5.4 H mg/dl
(0.2-1.3)
Direct Bilirubin 2.8 H mg/dl
(0.0-0.4)
AST 2155 H* U/L
(17-59)
ALT 599 H* U/L
(0-50)
Alkaline Phosphatase 294 H U/L
(38-126)
Ammonia
Troponin I 0.456 H* ng/ml
Albumin 2.9 L g/dl
(3.5-5.0)
Lipase 872 H U/L
(23-300)
Urine Ketones
Ur Occult Blood Reflex
Urine Nitrite (Reflex)
Urine Bilirubin
Leukocyte Esterase Rfl
Urine RBC
Urine Bacteria (Reflex)
Urine Glucose
Urine Albumin (Reflex)
Acetaminophen < 10 L ug/ml
(10-30)
12/24/23 12/24/23 12/24/23
20:54 21:04 21:30
WBC
RBC
Hgb
Hct
MCV
MCH
RDW
Plt Count
MPV
Absolute Neuts (auto)
Absolute Monos (auto)
Neutrophils %
Lymphocytes %
Monocytes %
PT
APTT
VBG pH 7.26 L
(7.32-7.43)
VBG pCO2 32 L mmHg
(35-48)
VBG pO2 54 H mmHg
(30-50)
VBG HCO3 14.4 L mmol/L
(22-27)
Potassium
Carbon Dioxide
BUN
Creatinine
Glucose
Lactic Acid
Calcium
Total Bilirubin
Direct Bilirubin
AST
ALT
Alkaline Phosphatase
Ammonia 41 H umol/L
(9-30)
Troponin I
Albumin
Lipase
Urine Ketones Trace A
(Negative)
Ur Occult Blood Reflex 4+ A
(Negative)
Urine Nitrite (Reflex) Positive A
(Negative)
Urine Bilirubin 2+ A
(Negative)
Leukocyte Esterase Rfl Trace A
(Negative)
Urine RBC 60-70 A /HPF
(0-2)
Urine Bacteria (Reflex) Moderate A
(Negative)
Urine Glucose 1+ A
(Negative)
Urine Albumin (Reflex) 3+ A
(Neg - Trace)
Acetaminophen
12/24/23 18:00
12/24/23 18:00
Leukocytosis, H/H slightly low. Anemia. thrombocytopenia, Slight Hyperkalemia, carbon dioxide very low, acute renal failure, Hypocalcemic, Total starr elevation. Acute elevation of the AST/ALT, alk phos elevation. Albumin low. Lipase elevated to
872, Acetaminophen <10. Direct starr elevation to 2.8, Troponin elevated 0.456 (possible due to renal failure), lactic 6.8, PT 26.6 with INR 2.47. Urine questionable for infection.
Vital Signs
Initial and Last Documented VS:
Initial Vital Signs
Temp Pulse Resp BP Pulse Ox
97.1 F 104 18 132/89 96
12/24/23 17:50 12/24/23 17:50 12/24/23 17:50 12/24/23 17:50 12/24/23 17:50
Last Documented Vital Signs
Temp Pulse Resp BP Pulse Ox
97.1 F 109 22 125/68 93
12/24/23 17:50 12/24/23 21:10 12/24/23 21:10 12/24/23 21:10 12/24/23 21:10
<Kayla Arnold MD - Last Filed: 12/24/23 21:25>
Orders/Labs/Results
Orders:
Orders
12/24/23 18:00
Acetaminophen Urgent
Comment: ADD ON
Complete Blood Count/With Diff Urgent
Comprehensive Metabolic Panel Urgent
Direct Bilirubin Urgent
Comment: ADD ON
Lipase Urgent
Comment: ADD ON
12/24/23 18:52
0.9% Sodium Chloride 1000 ml [Nss] 1,000 ml IV BOLUS
US Abdomen Complete/Upper Urgent
Comment:
Reason For Exam: Right upper abd pain
12/24/23 18:53
CR Chest - 2 Views Urgent
Comment:
Reason For Exam: SOB
12/24/23 19:11
Electrocardiogram (*1) Urgent
Reason for Study: Shortness of Breath
EKG- Treatment ONCE
Troponin I Urgent
12/24/23 19:19
Add On- LAB Urgent
Tests Added?: Direct starr
12/24/23 19:35
Add On- LAB Urgent
Tests Added?: lipase
12/24/23 19:51
COVID-19 Antigen Stat
Source: Nasal Swab
Lactic Acid Urgent
PT/INR [Prothrombin Time] Stat
PTT Urgent
12/24/23 20:30
Dextrose 5%/Water 1000 ml [D5w] 1,000 ml Sodium Bicarbonate 150 meq IV 200 mls/hr
12/24/23 20:36
Admit/Transfer Patient As Directed
Co-Sign Provider:
Level of Care: Inpatient admission
Assign to:: IMU- Intermediate Care
Physician / Group: teressa
Diagnosis: decompensated liver disease
Reason for Hospitalization: decompensated liver disease
Expected length of stay greater than two midnights?: Yes
ELOS- Estimated Length of Stay in days: 3
I certify the patient meets the requirements for IP care: Yes
12/24/23 20:37
PRN Pain Medication Management As Directed
May give lesser potent ordered pain med per pt: Yes
preference::
Protocol:: Medication orders for pain may be administered in a
manner that supports deferring to patient preference
when the pt is:
- Requesting an ordered lesser potent pain medication.
Least to most potent pain medications are defined
as: acetaminophen < NSAID < tramadol < opioids
(morphine, oxycodone, hydromorphone).
- Requesting a lesser dose of the same medication IF
ORDERED.
- Requesting a less intrusive route of administration
if both routes are prescribed by the provider (PO <
IV).
12/24/23 20:38
Code Status As Directed
Resuscitation Status: Full Code
12/24/23 20:54
Urinalysis Reflex To Culture Urgent
Date Specimen was Collected: 12/24/23
Time Specimen was Collected: 20:50
Urine Drug Abuse Screen Urgent
Date Specimen was Collected: 12/24/23
Time Specimen was Collected: 20:50
Urine Microscopic Reflex Cult Urgent
Urine Culture Urgent
MARVIN Source: U
Specimen Description:
Date Specimen was Collected: 12/24/23
Time Specimen was Collected: 20:50
12/24/23 21:00
Flush (0.9% Sodium Chloride) [Flush (Nss)] See Dose Instructions IV PER PROTOCOL
12/24/23 21:04
Ammonia Stat
12/24/23 21:09
0.9% Sodium Chloride 1000 ml [Nss] 1,000 ml IV BOLUS
12/24/23 21:18
Add On- LAB Urgent
Comments:: urine in lab
Tests Added?: urine drug screen
12/24/23 21:19
Hepatitis A IgM Antibody Urgent
Hepatitis B Core Ab, IgM Urgent
Hepatitis B Surface Antibody Urgent
Hepatitis B Surface Antigen Urgent
Hepatitis C Antibody Urgent
Blood Culture Urgent
MARVIN Source: Blood/Venous
Specimen Description:
12/24/23 21:27
Urine Creatinine Stat
Urine Potassium Stat
Urine Sodium Stat
12/24/23 21:30
Venous Blood Gas Urgent
%Oxygen/Room Air: ra
12/24/23 21:49
Blood Culture Routine
MARVIN Source: Blood/Venous
Specimen Description:
12/25/23 00:30
BMP [Basic Metabolic Panel] Stat
Abnormal Lab Results
12/24/23 12/24/23 12/24/23
18:00 19:11 19:51
WBC 12.8 H 10^3/uL
(4.8-10.8)
RBC 3.47 L 10^6/uL
(4.70-6.10)
Hgb 12.3 L g/dL
(13.0-18.0)
Hct 33.4 L %
(39.0-52.0)
MCV 96.3 H fL
(80.0-94.0)
MCH 35.4 H pg
(27.0-31.0)
RDW 17.2 H %
(11.5-14.5)
Plt Count 113 L 10^3/uL
(130-400)
MPV 12.6 H fL
(7.4-10.4)
Absolute Neuts (auto) 10.0 H 10^3/uL
(1.4-6.5)
Absolute Monos (auto) 1.3 H 10^3/uL
(0.1-0.6)
Neutrophils % 78.0 H %
(42.2-75.2)
Lymphocytes % 11.1 L %
(20.5-51.1)
Monocytes % 10.2 H %
(1.7-9.3)
PT 26.6 H Sec
(11.4-14.6)
APTT 51.0 H Sec
(23.4-35.0)
VBG pH
VBG pCO2
VBG pO2
VBG HCO3
Potassium 5.4 H mmol/L
(3.5-5.1)
Carbon Dioxide 11 L* mmol/L
(22-30)
BUN 82 H mg/dl
(9-20)
Creatinine 8.5 H* mg/dL
(0.7-1.3)
Glucose 102 H mg/dl
(70-99)
Lactic Acid 6.8 H* mmol/L
(0.7-2.0)
Calcium 7.6 L mg/dl
(8.4-10.2)
Total Bilirubin 5.4 H mg/dl
(0.2-1.3)
Direct Bilirubin 2.8 H mg/dl
(0.0-0.4)
AST 2155 H* U/L
(17-59)
ALT 599 H* U/L
(0-50)
Alkaline Phosphatase 294 H U/L
(38-126)
Ammonia
Troponin I 0.456 H* ng/ml
Albumin 2.9 L g/dl
(3.5-5.0)
Lipase 872 H U/L
(23-300)
Urine Ketones
Ur Occult Blood Reflex
Urine Nitrite (Reflex)
Urine Bilirubin
Leukocyte Esterase Rfl
Urine RBC
Urine Bacteria (Reflex)
Urine Glucose
Urine Albumin (Reflex)
Acetaminophen < 10 L ug/ml
(10-30)
12/24/23 12/24/23 12/24/23
20:54 21:04 21:30
WBC
RBC
Hgb
Hct
MCV
MCH
RDW
Plt Count
MPV
Absolute Neuts (auto)
Absolute Monos (auto)
Neutrophils %
Lymphocytes %
Monocytes %
PT
APTT
VBG pH 7.26 L
(7.32-7.43)
VBG pCO2 32 L mmHg
(35-48)
VBG pO2 54 H mmHg
(30-50)
VBG HCO3 14.4 L mmol/L
(22-27)
Potassium
Carbon Dioxide
BUN
Creatinine
Glucose
Lactic Acid
Calcium
Total Bilirubin
Direct Bilirubin
AST
ALT
Alkaline Phosphatase
Ammonia 41 H umol/L
(9-30)
Troponin I
Albumin
Lipase
Urine Ketones Trace A
(Negative)
Ur Occult Blood Reflex 4+ A
(Negative)
Urine Nitrite (Reflex) Positive A
(Negative)
Urine Bilirubin 2+ A
(Negative)
Leukocyte Esterase Rfl Trace A
(Negative)
Urine RBC 60-70 A /HPF
(0-2)
Urine Bacteria (Reflex) Moderate A
(Negative)
Urine Glucose 1+ A
(Negative)
Urine Albumin (Reflex) 3+ A
(Neg - Trace)
Acetaminophen
12/24/23 18:00
12/24/23 18:00
Vital Signs
Initial and Last Documented VS:
Initial Vital Signs
Temp Pulse Resp BP Pulse Ox
97.1 F 104 18 132/89 96
12/24/23 17:50 12/24/23 17:50 12/24/23 17:50 12/24/23 17:50 12/24/23 17:50
Last Documented Vital Signs
Temp Pulse Resp BP Pulse Ox
97.1 F 109 22 125/68 93
12/24/23 17:50 12/24/23 21:10 12/24/23 21:10 12/24/23 21:10 12/24/23 21:10
<MARCY Liu - Last Filed: 12/24/23 21:42>
MDM/Problems Addressed
Differential Diagnosis Includes:
Severe dehydration, gallbladder disease, abnormal labs
MDM/Problems Addressed:
This is a 78 year old male that comes in with c/o diarrhea, weakness. Told that the patient has not been eating or drinking. Patient vomited while waiting in the ER waiting room.
Will get labs, US and admit. Explained to patient and family that the patient is in renal failure and that his Liver enzyme were still pending. Will give IV fluids and get US. Hospitalist notified.
Dr Arnold spoke with Dr. Franklyn Livingston and they do not have a bed until tomorrow. Will admit over night here and transfer in the morning. Hospitalist aware. Transfer sheet signed and scanned into the chart.
Chronic conditions affecting care:
Cirrhosis liver, JOHNSON,
Acute Exacerbation and/or Progression of Chronic Illness:
liver cirrhosis, JOHNSON
<MARCY Liu - Last Filed: 12/24/23 21:42>
*Radiology
Radiology exam reviewed: preliminary read by ED provider (chest- negative for acute cardiopulmonary disease. ) and radiology read reviewed (US-Cirrhosis with moderate ascites. Cholelithiasis with thickening of the gallbladder wall to 3.4mm likely
due to the presence of ascites rather than reflecting cholecystitis. )
*Pulse Oximetry
Patient hypoxic: no
*EKG
Interpreted by ED Provider?: Yes
Heart Rate: 112
Rate: tachycardiac
Rhythm: sinus
[place]: left axis deviation
Interval: normal interval
QRS Pattern: low voltage
Ischemia: no ischemia
*Log Raft Worker Interpretation
Rate: tachycardiac
Heart Rate: 111
Rhythm: sinus tachycardia
*Critical Care Note
Total Time (30-74mins, 75-104mins- exclusive of procedures): Not Applicable
ED Attending Note
<MARCY Liu - Last Filed: 12/24/23 21:42>
-
Portions of this chart may have been created with voice recognition software.� Occasional wrong word or��sound alike� substitutions may have occurred due to the inherent limitations of voice recognition software.
<Kayla Arnold MD - Last Filed: 12/24/23 21:25>
ED Attending Note
Patient seen and examined by attending physician: Yes
I performed the substantive portion of visit, reviewed & personally made and approve the management plan that is documented in note by myself or SARI.: Yes
ED Attending Note:
Case discussed with Dr. Jose Brandon while at [facility] regarding patient condition, history, vitals, labs, etc. Recommendation is for patient to be transferred to [facility] however bed not expected to be available overnight and therefore
recommended the patient be admitted to the hospital in the meantime. Recommendation is to also add a full hepatitis panel, infectious workup, and at some point an ultrasound abd with Dopplers. Continue IV fluids. Patient is not considered a
transplant candidate. No further recommendations at this time.
Discharge Plan
Departure
Patient Disposition: [facility]
Date of Disposition: 12/24/23
Time of Disposition: 19:09
Patient with high blood pressure during this ER visit?: Yes
Condition: Good
Covid-19: Not Applicable
Discharge Problem:
Acute renal failure, acute elevated liver enzymes, Pancreatitis, Cholelithiasis
Prescriptions:
No Action
One Daily Multi-Vit w-Mineral 1 EACH tablet
1 ea PO DAILY
atorvastatin 80 MG tablet
80 mg PO HS
clopidogrel 75 MG tablet
75 mg PO DAILY Qty: 30 3RF
turmeric 400 mg Capsule
400 mg PO DAILY
citalopram [Celexa] 40 mg Tablet
40 mg PO DAILY
ezetimibe [Zetia] 10 mg Tablet
10 mg PO DAILY
alfuzosin 10 mg Tablet Extended Release 24 Hr
10 mg PO DAILY
Visbiome 112.5 billion cell Capsule
1 cap PO DAILY
Benefiber Healthy Shape 5 gram/7.4 gram Powder
5 g PO DAILY
metoprolol succinate [Toprol XL] 25 mg tablet extended release 24 hr
25 mg PO DAILY Qty: 30 6RF
finasteride 5 mg Tablet
5 mg PO DAILY
Eliquis 5 mg tablet
2.5 mg PO DAILY
Referrals:
Jorje Briggs MD [Family Provider] -
Hospital Transfer
Other hospital: [facility]
I certify that the patient requires transfer: Yes
Discussed case with accepting physician: Dr Estes
Reason for transfer: higher level of care and specialties available
Interventions
Interventions:
*Risk Screen - Suicide Last Done: 12/24/23 18:42
*General Assessment Last Done: 12/24/23 18:41
*Neglect/Abuse Screening Last Done: 12/24/23 18:42
ED- Fall Risk Assessment Last Done: 12/24/23 18:43
*ED COVID-19 Vaccine History Last Done: 12/24/23 18:41
ED- Cardiac Assessment Last Done: 12/24/23 19:10
ED- Neurological Assessment Last Done: 12/24/23 19:10
ED- Pulmonary Assessment Last Done: 12/24/23 19:10
Discharge Date and Time
Print Language: PORTUGUESE
--- NOTE | 2023-12-24 19:32 | HPS.HSE ---
Family Physician
-
Family Physician: Jorje Briggs
Chief Complaint
-
abdominal pain
n/v/d
History of Present Illness
78 year old with PMH for CAD, COPD, CVA< ERD< HTN, HLD, sleep apnea, Narcolepsy, cirrhosis of Liver, JOHNSON presented to us with diarrhea, nausea, vomiting for past few days. patient stated left sided abdominal pain. today he noticed blood in his
stool. patient stated poor appetite. he was very weak and was not able to walk to the car. patient denied PATEL, dizzy or syncopal episode. denied fever, chills, runny nose, congestion, cough. denied dysuria or hematuria.
In ER patient was noted in LENARD and elevated transaminase. admitting for further management.
Medical History
Past Medical History
Past Medical History: Reports Other
Additional Past Medical History:
Inflammatory bowel disease
BPH
Hypertension
Coronary artery disease
Thoracic aortic aneurysm
Obstructive sleep apnea
Past Surgical History: Reports Other
Additional Past Surgical History:
Cardiac stent
Lumbar laminectomy
cataract surgery
knee replacement
Social History
Tobacco: Former Smoker
Alcohol: Former
Drug: None
Personal: Single
Living: Alone
Family History
Family History: Not pertinent
Allergies / Home Medications
Allergies reflects when Allergies were last updated in [facility].
Home Medications with original date entered in [facility]
Allergy/Medication List:
Allergies
Allergy/AdvReac Type Severity Reaction Status Date / Time
Sulfa (Sulfonamide Allergy Unknown Unknown Verified 12/24/23 17:50
Antibiotics)
Home Medications
atorvastatin 80 mg tablet 80 mg PO HS High cholesterol 03/07/16
multivitamin with minerals-ferrous sulfate 4.5 mg iron tablet (One Daily Multivitamins with Minerals) 1 ea PO DAILY Supplement 11/15/16
clopidogrel 75 mg tablet 75 mg PO DAILY ##30 03/09/16
turmeric 400 mg capsule 400 mg PO DAILY Supplement 07/01/22
Lactobac no.2-Bifidobac no.1-S. thermo 112.5 billion cell capsule (Visbiome) 1 cap PO DAILY 09/13/22
alfuzosin 10 mg tablet,extended release 24 hr 10 mg PO DAILY 09/13/22
citalopram 40 mg tablet (Celexa) 40 mg PO DAILY 09/13/22
ezetimibe 10 mg tablet (Zetia) 10 mg PO DAILY 09/13/22
metoprolol succinate 25 mg tablet,extended release 24 hr (Toprol XL) 25 mg PO DAILY #30 tabs 09/13/22
wheat dextrin 5 gram/7.4 gram oral powder (Benefiber Healthy Shape) 5 g PO DAILY 09/13/22
apixaban 5 mg tablet (Eliquis) 2.5 mg PO DAILY 12/24/23
finasteride 5 mg tablet 5 mg PO DAILY 12/24/23
Review of Systems
-
Constitutional: Reports No Symptoms
EENT: Reports No Symptoms
Respiratory: Reports Trouble Breathing
Cardiac: Reports No Symptoms
Abdomen/GI: Reports Abdominal Pain, Nausea, Vomiting and Diarrhea
: Reports No Symptoms
Musculoskeletal: Reports No Symptoms
Skin: Reports No Symptoms
Neurological: Reports Weakness
Endocrine: Reports No Symptoms
Hematologic/Lymphatic: Reports No Symptoms
Psych: Reports No Symptoms
Physical Exam
Vital Signs
Vital Signs
Temp Pulse Resp BP Pulse Ox
97.1 F 110 25 111/81 96
12/24/23 17:50 12/24/23 19:00 12/24/23 19:00 12/24/23 19:00 12/24/23 18:45
Physical Exam
General: Well Developed, Well Nourished and No Apparent Distress
HEENT: NormoCephalic, Moist mucous membranes and Atraumatic
Respiratory: Clear
Cardiac: S1/S2 and Regular Rhythm; No Murmur or Rub
GI: Normal Bowel Sounds, Tender and Distended; No Organomegaly
Rectal: Deferred by Provider
Musculoskeletal: No Clubbing, No Cyanosis and No Edema
Skin: No Rash
Neuro: AO x 3 and Nonfocal/grossly intact
Psych: Calm
Laboratory Results
-
12/24/23 18:00
12/24/23 18:00
Laboratory Results
Total Bilirubin 5.4 mg/dl (0.2-1.3) H 12/24/23 18:00
AST 2155 U/L (17-59) H* 12/24/23 18:00
ALT 599 U/L (0-50) H* 12/24/23 18:00
Alkaline Phosphatase 294 U/L (38-126) H 12/24/23 18:00
Data Reviewed
-
Diagnostic Radiology: Report Reviewed by me
Lab Data: Labs Reviewed by me
Impression/Plan
-
# Diarrhea/poor oral intake/acute decompensation of liver disease
# History of cirrhosis/JOHNSON
-T. bili is 5.4 AST 2155, ALT 599,lipase 872
-wbc 12.8,tachycardia
-Abdominal ultrasound with Cirrhosis with moderate ascites.Cholelithiasis with thickening of the gallbladder wall to 3.4 mm likely due to the presence of ascites rather than reflecting cholecystitis
-consult GI
-will keep patient NPO
-obtain hep panel,blood culture
-obtain Doppler US
-ctm
# Anemia of chronic disease/chronic thrombocytopenia
-Hemoglobin stable at 12.3 , platelets 113
-continue to monitor
# Acute renal failure /hyperkalemia/metabolic acidosis
-K5.4, CO2 11, creatinine 0.5, BUN 82
-received normal saline in ER
-sodium bicarb infusing
-trend BMP
-nephrology consulted
#lactic acidosis likely from LENARD
-lactic acid 6.8
-trend lactic
#elevated trop NSTEMI
-trend trop
-cardiology consulted
#
-Chronic.
#HTN
-BP stable
-metoprolol continued with hold parameter
#HLD
-hold statin
-Zetia continued
#anxiety
-Celexa continued
#CAD
-s/p cardiac stents
-Plavix continued
#paroxysmal atrial fib
-hold eliquis due to elevated iNR and blood in stool
-EKG with sinus tachycardia
-metoprolol continued
#DELROY with narcoleptic syndrome
-Chronic.
-CPAP at 10 cmH2O
#BPH
-alfuzosin,finasteride continued
#DVT prophylaxis
-scd
#CODE status
-full code
patient waiting for transfer to [facility].
--- NOTE | 2023-12-24 19:48 | EDRN ---
Adelita VIDAL in w/ family and pt at this time.
[2023-12-24 19:49] LABS: Acetaminophen < 10 ug/ml (10-30); Lipase 872 U/L (23-300)
[2023-12-24] MEDS: NSS 1000 IV ×2 (19:50→21:36)
[2023-12-24 19:51] LABS: Direct Bilirubin 2.8 mg/dl (0.0-0.4)
[2023-12-24 19:53] LABS: Troponin I 0.456 ng/ml
[2023-12-24 20:16] LABS: Lactic Acid 6.8 mmol/L (0.7-2.0)
[2023-12-24 20:17] LABS: INR 2.47; PT 26.6 Sec (11.4-14.6)
[2023-12-24 20:23] LABS: COVID-19 Antigen Negative (Negative)
--- NOTE | 2023-12-24 20:25 | EDRN ---
Hospitalist is in room w/pt.
--- NOTE | 2023-12-24 20:32 | EDRN ---
Pharmacy called for bicarb IVF.
[2023-12-24 21:03] LABS: Urine Albumin 3+ (Neg - Trace); Urine Bilirubin 2+ (Negative); Urine Character Very Cloudy (Clear); Urine Color Brown; Urine Glucose 1+ (Negative); Urine Ketone Trace (Negative); Urine Leukocyte Trace (Negative); Urine Nitrite Positive (Negative); Urine Occult Blood 4+ (Negative); Urine Urobilinogen Negative (Neg - 1+)
[2023-12-24] MEDS: SODIUM BICARBONATE 1150 MEQ IV (21:10)
[2023-12-24 21:12] LABS: Urine Bacteria Moderate (Negative); Urine Squamous Cell 0-2 /LPF (Few)
[2023-12-24 21:13] LABS: Urine Red Blood Cell 60-70 /HPF (0-2); Urine White Cell 0-2 /HPF (0-5)
[2023-12-24 21:22] LABS: Ammonia 41 umol/L (9-30)
--- NOTE | 2023-12-24 21:30 | EDRN ---
Dr. Dominguez (hospitalist said okay for pt to have ice chips only). Pt administered ice chips at 21:30.
[2023-12-24 21:35] LABS: Venous Blood Gas B.E. -11.6 mmol/L (-4 to +4); Venous Blood Gas HCO3 14.4 mmol/L (22-27); Venous Blood Gas O2 Sat % 80.7 %; Venous Blood Gas pCO2 32 mmHg (35-48); Venous Blood Gas pH 7.26 (7.32-7.43); Venous Blood Gas pO2 54 mmHg (30-50)
[2023-12-24 21:36] LABS: Amphetamines Negative (Negative); Barbiturates Negative (Negative); Benzodiazepines Negative (Negative); Buprenorphine Negative (Negative); Cocaine Negative (Negative); Marijuana Negative (Negative); Methadone Negative (Negative); Methamphetamines Negative (Negative); Opiates Negative (Negative); Phencyclidine Negative (Negative); Tricyclic Antidepressants Negative (Negative)
--- NOTE | 2023-12-24 22:01 | EDRN ---
Attempting to call report to IMU at this time.
--- NOTE | 2023-12-24 22:13 | EDRN ---
Verbal report called to Gurdeep LEIGH in IMU at this time.
--- NOTE | 2023-12-24 22:25 | EDRN ---
Pt to be transferred to [facility] where his liver MD specialists are. Pt is scheduled to leave tomorrow am. All transfer paperwork prepared in ER was placed in manila envelope with transfer sheet will be taken to IMU w/ pt.
--- NOTE | 2023-12-24 22:34 | W.PN.UPDATE ---
Update Note
Progress Note Update
Patient seen and examined independently and in conjunction with LOCKET MAKER. I agree with history and physical as well as assessment and plan with changes as indicated.
This is a 78-year-old male with a past medical history of CAD status post stenting, atrial fibrillation on apixaban, hyperlipidemia, COPD, and a history of JOHNSON complicated by cirrhosis (last MELD score a year ago was 12) who presents to
the emergency department from home where he lives alone with abdominal pain nausea vomiting diarrhea and weakness and fatigue.
Patient was able to provide some history which further history gathered from family members. The blood report that the patient has been having symptoms for about 5 to 7 days. He reports incessant nausea vomiting and watery diarrhea. He also noted
some bloody diarrhea. He reports no fevers or chills. He does report feeling weak tired and lightheaded. The patient lives at home and usually eats prepared meals occasional meals that he gets outside. There are no known sick contacts. No
recent travels he denied any alcohol use. He denied any NSAID use. He denies active acetaminophen use he denies any recent changes in his medication. He has not been any recent GI procedures. He has not been having any chest pain, shortness of
breath dyspnea on exertion. Over the last 5 days the patient has attempted to eat but has not been able to keep anything down.
When he arrived to the ED he was awake alert oriented and communicative. His blood pressure was 111/81 with a pulse of 110 temperature 97.1. Oxygen saturation was 96 on room air. His chest x-ray was clear. His labs were notable for significant
abnormalities of the LFTs with AST greater than 2000 and ALT in the 500s. Alk phos was elevated at 200. His bilirubin was also elevated at 5.3 (total). He had significant abnormalities in coag with a INR of over 2. He stated count was 113.
Additionally he is lites were notable for a BUN of 82 creatinine of 8.5 and a bicarb of 11. VBG shows a pH of 7.26 potassium is 5.4. He had a right upper quadrant ultrasound which showed cholelithiasis and no evidence of acute choledocholithiasis
or cholecystitis. Bladder scan showed an empty bladder. He straight catheter also showed oliguria. COVID test was negative.
Assessment and plan
Patient with history of Johnson cirrhosis with a prior meld of 12 who presents with acute liver injury complicated by acute renal failure and coagulopathy concerning for fulminant hepatic failure. He is alert and oriented and does not show signs of
encephalopathy at this time. Etiology of the acute liver injury is unclear with differential including acute viral hepatitis, infectious hepatitis, ischemic/shock liver, choledocholithiasis/passed stone without cholangitis. The renal failure will
be secondary to the fulminant hepatic disease versus ATN/prerenal in the setting of severe hypovolemia given is a several days of GI symptoms. Patient discussed with ED and GI and felt again at high risk of fulminant hepatic failure and given that
he has follow-up with specialist at [place] (Dr. Mistry) he would benefit from immediate/early transfer to a tertiary center. However bed is not currently available and patient will be admitted to IMU pending transfer.
1. Acute liver injury/failure - Etiology unclear w/ diff dgx as above. ETOH negative, acetaminophen negative. No obvious stone. There is elevated lipase as well. Concern for fulminant hepatic failure
- admit to IMU
- npo except meds/sips
- checking acute hepatitis panel, doppler u/s
- moderate/mild ascites but does not show signs of hepatic encephalopathy, hold off on paracentesis
- INR, elevated holding on anticoagulation at this time (patient was on eliquis for afib).
- Transfer to [place] (accepted by Dr Mistry, bed pending).
2. Pancreatitis - Elevated lipase to 800. Cholelithiasis. Mild abdominal pain.
- unclear, possibly gall stone pancreatitis but no evidence of current choledocholithiais, check mrcp
- trend lfts and repeat lipase
- npo
- iv fluids as above
3. Acute Renal Failure - Oliguric renal failure. History suggest hypovolemia or ATN versus secondary to liver failure. Straight with scan urine likley unreliable for u/a and lytes. No evidence of volume overload. K 5.4. Bicarb 11, pH 7.26,
lactic acid 6 (likely secondary to liver failure and not sepsis).
- 1 L IV bolus
- Hydration with bicarb 150 meq at 100 ml/hr
- u/a and lytes
- strict i/o
- abd u/s
- nephrology consult
4. Type II VA due to liver injury/pancreatitis - History of CAD s/p PCI with last intervention last year at [facility]. Trop 0.45. No chest pain. ECG is non-specific.
- aspirin, plavix continued
- trend troponin, holding apixaban, if rising trop will start medical management with heparin gtt
- echo
- cardiology consult
5. AFIB - p AFIB. Currently sinus with tach to 110.
- INR 2.4. holding eliquis
- continue metoprolol
DVT PPX with SCDs for now
Code Status: Full
[2023-12-24 23:15] LABS: Hepatitis B Surface Antigen Negative (Negative)
[2023-12-24 23:19] LABS: Hepatitis A IgM Antibody Negative (Negative); Hepatitis B Core Ab, IgM Negative (Negative)
[2023-12-24 23:33] LABS: Hepatitis B Surface Antibody Positive; Hepatitis C Antibody Negative (Negative)
[2023-12-25] VITALS (31 sets, daily range): BP systolic 86–146; BP diastolic 42–106; BMI 30.7; BMI 31.3
[2023-12-25 01:05] LABS: Lactic Acid 3.5 mmol/L (0.7-2.0)
[2023-12-25 01:07] LABS: Blood Urea Nitrogen 83 mg/dl (9-20); Calcium 6.2 mg/dl (8.4-10.2); Carbon Dioxide 16 mmol/L (22-30); Chloride 107 mmol/L (98-107); Estimated Creatinine Clearance 7 ml/min; Glucose 157 mg/dl (70-99); Potassium 5.2 mmol/L (3.5-5.1); Sodium 135 mmol/L (135-145); eGFR 6.93
[2023-12-25 01:19] LABS: Hepatitis B Core Ab, Total Negative (Negative)
[2023-12-25 01:20] LABS: Hepatitis A Antibody, Total Positive (Negative)
[2023-12-25 01:26] LABS: Troponin I 0.426 ng/ml
[2023-12-25] MEDS: CALCIUM GLUCONATE 100 IV ×2 (02:05→14:13)
[2023-12-25] MEDS: SODIUM BICARBONATE 1150 MEQ IV ×3 (04:09→11:30)
--- NOTE | 2023-12-25 05:02 | PTCARENOTE ---
periods of confusion and forgetfulness with restless sleep- pulled out iv- gets very tachy with exertion able to reorient. am labs sent
[2023-12-25 05:23] LABS: Lactic Acid 3.8 mmol/L (0.7-2.0)
[2023-12-25 05:31] LABS: ALT (SGPT) 523 U/L (0-50); Albumin 2.3 g/dl (3.5-5.0); Alkaline Phosphatase 221 U/L (38-126); Amylase 97 U/L (30-110); Blood Urea Nitrogen 89 mg/dl (9-20); Calcium 7.1 mg/dl (8.4-10.2); Carbon Dioxide 14 mmol/L (22-30); Chloride 104 mmol/L (98-107); Estimated Creatinine Clearance 7 ml/min; Glucose 171 mg/dl (70-99); Lipase 647 U/L (23-300); Potassium 5.1 mmol/L (3.5-5.1); Sodium 133 mmol/L (135-145); Total Bilirubin 4.9 mg/dl (0.2-1.3); Total Protein 5.3 g/dl (6.3-8.2); eGFR 6.93
[2023-12-25 05:35] LABS: Troponin I 0.486 ng/ml
--- NOTE | 2023-12-25 05:59 | PTCARENOTE ---
criticals reported- pt on fluids with bicarb- vital pox wnl-
[2023-12-25 06:06] LABS: AST (SGOT) 1878 U/L (17-59)
--- NOTE | 2023-12-25 06:48 | CON.GI ---
Addendum entered and electronically signed by Avery Soto DO 12/25/23 10:52:
I saw and examined the patient.
The SIEVE GRADER TENDER's note was reviewed and I agree with the note. This is a 76 y.o male with past medical history as outlined below and compensated cirrhosis (2/2 A1AT and MASH, previously f/w [facility]) who presented with nausea/vomiting, weakness, confusion and
diarrhea found to have oliguric renal failure, elevated transaminases concerning for ischemic injury, ascites and new encephalopathy with MELD 3.0 score 35 concerning for acute on chronic liver failure.
#Ascites #Encephalopathy
#Leukocytosis c/f #Sepsis
#Nausea/Vomiting #Acute Diarrhea
#Elevated Transaminases c/f #Ischemic Hepatitis
#Compensated MASH/A1AT Cirrhosis
#Hx of Nonbleeding EV
#Oliguric Renal Failure #AGMA
#GB Wall Thickening
Recommendations:
- Keep NPO
- Stop IVF, start IV 25% albumin 25 grams q 6 hrs for intravascular expansion
- Urgent IR consult for both diagnostic and therapeutic paracentesis. Prefer low-volume paracentesis (< 4 L) given significant LENARD and tense ascites. Ensure peritoneal fluid studies have been sent- cell count with diff, culture
- Panculture- blood and urine along with stool culture, stool O&P and C Diff (although low suspicion)
- Will f/u results of CT scan later today, please AVOID IV contrast
- Agree with empiric IV broad-spectrum IV antibiotics, ensure renally-dosed medications for eGFR
- Please check US Dopplers to r/o PVT given acute decompensation and ensure patent vasculature
- Hepatitis serologies (-), HAV/HBV immune
- Hold all diuretics, avoid nephrotoxic agents
- Nephrology consulted, appreciate recs
- Repeat MELD 3.0 labs this afternoon including CMP, CBC, and INR along with Mg and Phosph given renal function
- Currently accepted at [facility] pending bed availability for transfer. Will reach out to Syed later today for update
- Agree with transfer to ICU as patient remains at high risk for clinical decompensation
I discussed with the patient's daughter, Afsaneh, regarding his recent admission and extensive work-up thus far.
GI team will continue to follow. Please reach out with any questions or concerns regarding this patient's care.
Avery Soto DO
Department of Gastroenterology
Addendum entered and electronically signed by Avery Soto DO 12/25/23 10:36:
I saw and examined the patient.
The SIEVE GRADER TENDER's note was reviewed and I agree with the note.
Original Note:
Consultation
-
Date/Time Consultation Requested: 12/24/232229
Date/Time Consultation Performed: 12/25/23 0700
Requesting Provider: MARCY Kelly
Performing Provider: MARCY Barraza, [place] Nelson MD
Reason for Consultation: cirrhosis
Medical History
Chief Complaint / HPI
Chief Complaint: weakness
History of Present Illness:
Pt is a 76yo present with hx CAD s/p PCI stent 2022 on Plavix, PAF on Eliquis, , TIA, HTN, DELROY, IBD, pancytopenia, and MASH cirrhosis with hx AIAT/fatty liver with disease for many years and prior liver biopsy. He follow with Dr. Cates. He now
presents to 12/23 with complaints of weakness, diarrhea, confusion. On admission noted with multiple lab abnormalities including WBC 12,800, hbg 12,3, platelets 113, INR 2.47(with Eliquis use), Na 135, Co2 11, BUN 82, creat 8.5, lactic acid 6.8,
bili 5.4, d bili 2,8, AST 2155, ALT 599, alk phos 294 and lipase 872. US notable for Cirrhosis with moderate ascites. Cholelithiasis with thickening of the gallbladder wall to 3.4 mm likely due to the presence of ascites rather than reflecting
cholecystitis.
In reviewing with patient he is noted with confusion and poor historian in exam. Per admission pt noted with diarrhea and weakness with poor appetite and confusion. He also complaints of shortness of breath. Pt also admits to nausea and
vomiting and abdominal fullness. No rectal bleeding.
Past Medical History
Past Medical History: Arrhythmias (PAF), CAD, COPD, CVA (TIA), GERD, HTN, Hypercholesterolemia, Valvular Disease () and Other (cirrhosis,EV, A1AT deficiency, MASH, colon polyp, colitis, chronic pancytopenia, DJD, PUD, sleep apnea, naroleptic,
covid with long covid, aortic root dilation Lumbar disc disease, BPH, Sciatica, tobacco abuse, DELROY with hx CPAP, obesity gastritis, arthritis )
Past Surgical History: Cardiac (06/2022 cardiac stents) and Orthopedic (lami/ TKR)
Social History
Tobacco: Former Smoker (per chart)
Alcohol: None
Drug: None
Living: Alone
Employment: Retired
Family History
Family History: Other (son of leukemia, other son and daughter low platelets of unclear cause possible ITP)
Allergies / Home Medications
Allergy/AdvReac Type Severity Reaction Status Date / Time
Sulfa (Sulfonamide Allergy Unknown Unknown Verified 12/24/23 17:50
Antibiotics)
�Medication �Instructions �Recorded
atorvastatin 80 mg tablet 80 mg PO HS High cholesterol 03/07/16
multivitamin with minerals-ferrous 1 ea PO DAILY Supplement 03/07/16
sulfate 4.5 mg iron tablet (One
Daily Multivitamins with Minerals)
clopidogrel 75 mg tablet 75 mg PO DAILY ##30 03/09/16
turmeric 400 mg capsule 400 mg PO DAILY Supplement 07/01/22
Lactobac no.2-Bifidobac no.1-S. 1 cap PO DAILY 09/13/22
thermo 112.5 billion cell capsule
(Visbiome)
alfuzosin 10 mg tablet,extended 10 mg PO DAILY 09/13/22
release 24 hr
citalopram 40 mg tablet (Celexa) 40 mg PO DAILY 09/13/22
ezetimibe 10 mg tablet (Zetia) 10 mg PO DAILY 09/13/22
metoprolol succinate 25 mg 25 mg PO DAILY #30 tabs 09/13/22
tablet,extended release 24 hr
(Toprol XL)
wheat dextrin 5 gram/7.4 gram oral 5 g PO DAILY 09/13/22
powder (Benefiber Healthy Shape)
apixaban 5 mg tablet (Eliquis) 2.5 mg PO DAILY 12/24/23
finasteride 5 mg tablet 5 mg PO DAILY 12/24/23
Review of Systems
-
History Source: Patient
Constitutional: Reports No Symptoms
EENT: Reports No Symptoms
Respiratory: Reports Trouble Breathing
Cardiac: Reports No Symptoms
Abdomen/GI: Reports Nausea, Vomiting and Diarrhea
: Reports Difficulty Voiding (not currently no urine after abdi placement )
Musculoskeletal: Reports No Symptoms
Skin: Reports No Symptoms
Neurological: Reports Weakness and Other (confused, oriented to name and place confused to year, minimal asterixis )
Endocrine: Reports No Symptoms
Vital Signs
Temp Pulse Resp BP Pulse Ox
97.8 F 106 22 122/79 95
12/25/23 04:00 12/25/23 04:06 12/25/23 04:06 12/25/23 04:06 12/24/23 23:16
Physical Exam
Exam
General: Other (some distress with shortness of breath )
Cardiac: Other (tachy )
GI: Soft (but some firmness ) and Distended
Musculoskeletal: No Clubbing and No Cyanosis
Skin: Warm and Dry
Neuro: Awake, Alert and Other (confused )
Psych: Calm
Results
WBC 12.8 10^3/uL (4.8-10.8) H 12/24/23 18:00
Hgb 12.3 g/dL (13.0-18.0) L 12/24/23 18:00
Hct 33.4 % (39.0-52.0) L 12/24/23 18:00
MCV 96.3 fL (80.0-94.0) H 12/24/23 18:00
Plt Count 113 10^3/uL (130-400) L 12/24/23 18:00
Absolute Neuts (auto) 10.0 10^3/uL (1.4-6.5) H 12/24/23 18:00
PT 26.6 Sec (11.4-14.6) H 12/24/23 19:51
INR 2.47 12/24/23 19:51
APTT 51.0 Sec (23.4-35.0) H 12/24/23 19:51
Sodium 133 mmol/L (135-145) L 12/25/23 04:36
Potassium 5.1 mmol/L (3.5-5.1) 12/25/23 04:36
Chloride 104 mmol/L (98-107) 12/25/23 04:36
Carbon Dioxide 14 mmol/L (22-30) L* 12/25/23 04:36
BUN 89 mg/dl (9-20) H 12/25/23 04:36
Creatinine 7.4 mg/dL (0.7-1.3) H* 12/25/23 04:36
Calcium 7.1 mg/dl (8.4-10.2) L 12/25/23 04:36
Total Bilirubin 4.9 mg/dl (0.2-1.3) H 12/25/23 04:36
AST 1878 U/L (17-59) H* 12/25/23 04:36
ALT 523 U/L (0-50) H* 12/25/23 04:36
Alkaline Phosphatase 221 U/L (38-126) H 12/25/23 04:36
Amylase 97 U/L (30-110) 12/25/23 04:36
Lipase 647 U/L (23-300) H 12/25/23 04:36
Hepatitis A IgM Ab Negative (Negative) 12/24/23 21:45
Hepatitis A Ab Total Cancelled 12/24/23 22:26
Hep Bs Antibody Positive 12/24/23 21:45
Hep B Core Total Ab Cancelled 12/24/23 22:26
Hep B Core IgM Ab Negative (Negative) 12/24/23 21:45
Hepatitis C Antibody Negative (Negative) 12/24/23 21:45
Diagnostic Image Results:
12/25/[address] pending
12/24/23- US abdomen
Cirrhosis with moderate ascites
Cholelithiasis with thickening of the gallbladder wall to 3.4 mm likely due to the presence of ascites rather than reflecting cholecystitis
12/23 CXR Lungs appear hypoinflated. Discoid atelectasis in the right lower lung.
06/2023 CT A/p IV contrast
1. No CT evidence for an acute posttraumatic abnormality of the abdomen or pelvis.
2. Hepatic cirrhosis.
3. Cholelithiasis.
4. Borderline fusiform aneurysm of the infrarenal abdominal aorta, and severe aortobiiliac calcified atherosclerosis.
08/16/21 MRI abdomen Stable appearance of mild hepatic cirrhosis. No MRI evidence for a suspicious liver lesion to indicate hepatocellular carcinoma.
Prior GI Procedures:
EGD 03/2019 - Grade I esophageal varices.
�� � � � � � � � � � - Gastritis. Biopsied.
�� � � � � � � � � � - Normal duodenal bulb, first portion of the duodenum
�� � � � � � � � � � and second portion of the duodenum.
EGD�� 02/2020 [place]- Grade I esophageal varices.
�� � � � � � � � � � � - Z-line regular, 36 cm from the incisors.
�� � � � � � � � � � � - Gastritis. Biopsied.
�� � � � � � � � � � � - Portal hypertensive gastropathy.
�� � � � � � � � � � � - Normal duodenal bulb, first portion of the duodenum
�� � � � � � � � � � � and second portion of the duodenum.
EGD: 03/2021 [place] �- Z-line regular, 38 cm from the incisors.
�� � � � � � � � � � � - Acute gastritis. Biopsied. neg
Colonoscopy: 03/2021- [place] - Diverticulosis in the distal descending colon.
�� � � � � � � � � � � - The examination was otherwise normal.
�� � � � � � � � � � � - No specimens collected.
Assessment / Plan
-
Pt is a 76yo present with hx CAD s/p PCI stent 2022 on Plavix, PAF on Eliquis, mild , TIA, HTN, DELROY, IBD, pancytopenia, and MASH cirrhosis with hx AIAT/fatty liver with disease for many years and prior liver biopsy. He follow with Dr. Cates. He
now presents to 12/23 with complaints of weakness, diarrhea, confusion. On admission noted with multiple lab abnormalities including WBC 12,800, hbg 12,3, platelets 113, INR 2.47(with Eliquis use), Na 135, Co2 11, BUN 82, creat 8.5, lactic acid
6.8, bili 5.4, d bili 2,8, AST 2155, ALT 599, alk phos 294 and lipase 872. US notable for Cirrhosis with moderate ascites. Cholelithiasis with thickening of the gallbladder wall to 3.4 mm likely due to the presence of ascites rather than
reflecting cholecystitis. Pt denies any new medication or supplement use.
-diarrhea
-confusion ammonia 41 on admission concern for HE
-marked elevated LFT's
-elevated lipase
-acidosis
-acute on chronic renal disease
-elevated lactic acid on admission
-tachycardia
-leukocytosis
-thrombocytopenia
-GB thickening on US
-increased troponin
-hx MASH/A1AT /fatty liver cirrhosis
-hx grade I EV on past
-portal HTN
other medical problems:
-hx colitis no current medications
-CAD prior stents on Plavix
-afib on Eliquis
-
-HTN
-hyperlipidemia
-COPD
-TIA
-DELROY
PLAN:
concern for acute on chronic renal and liver disease on admission with MELD 35 (some elevated INR with to 2.47 with Eliquis use) Etiology unclear -- meld also driven by worsening renal dysfunction
LFT with ischemic pattern ? period of hypotension
reviewed with Dr. Alvarenga and Dr. Dill for transfer to ICU with severe illness
add albumin Q6 with LENARD reviewed with renal
s/p celestin culture
check stool studies with diarrhea prior to admission
tox screen neg, Tylenol level less than 10 hepatitis with prior hep A and B immunity
agree with CT- non contrast pt going now for study
spoke with IR to arrange para to Rule out SBP and limit to 4 liters as noted with tense abd on exam
will add lactulose with confusion and mild ammonia elevation on admission
cont abx
Plavix and Eliquis currently on hold
awaiting bed at [facility] I left message for daughter to update on status
-
-
Thank you for consultation and allowing me to participate in the patient's care. Please call the java integration developer GI physician during the after hours with any questions or concerns.
[2023-12-25 07:48] LABS: Hematocrit 28.4 % (39.0-52.0); Hemoglobin 10.8 g/dL (13.0-18.0); Mean Corpuscular Hgb 36.5 pg (27.0-31.0); Mean Corpuscular Volume 95.9 fL (80.0-94.0); Mean Platelet Volume 12.7 fL (7.4-10.4); Platelet Count 85 10^3/uL (130-400); Red Blood Cell Count 2.96 10^6/uL (4.70-6.10); Red Cell Dist. Width 17.5 % (11.5-14.5); White Blood Cell Count 12.3 10^3/uL (4.8-10.8)
[2023-12-25] MEDS: ZETIA 10 MG PO (07:59)
[2023-12-25] MEDS: CELEXA 40 MG PO (08:00)
[2023-12-25] MEDS: PROSCAR 5 MG PO (08:01)
--- NOTE | 2023-12-25 08:09 | W.PN.HOSP.TC ---
Addendum entered and electronically signed by Jermaine Dill MD 12/25/23 08:49:
As per GI - no mucomyst for now
Addendum entered and electronically signed by Jermaine Dill MD 12/25/23 08:25:
#Afib, unspecified
Hold eliquis
Telemetry
BB to cont
DIscussed with daughter over the phone in details
Original Note:
Today's Communication/Plan
-
CT abd, GI and nephro, beal to be placed, trial of Mucomyst IV, Abx
Pending bed in [facility] - confirmed that patient accepted with transfer center
COuld not reach daughter over the phone
Assessment / Plan
Assessment / Plan
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
elevated trnasmainases and LENARD
Family reported 7 days of symprtoms and no recent NSAIDs or alcohol intake
Accepted for the transfer to [facility] Accepted by pending bed
A/P:
#LENARD oliguric with HAGMA
#Mild hyperkalemia
Bicarb drip
follow BNP
Beal
Nephro consult
Urine studies
#Transaminitits, decompensated liver cirrhosis
#Acute metabolic encephalopathy - mild confusion 2/2 liver cirrhosis
Follow LFT
GI consult
Tylenol level neg
Ammonia mildly elevated
With recent diarrhea - avoiding additional lactulose, pending GI consult
MELDNa 37 - 66% mortality in the next 90 days
MELD labs daily
#Elevated lipase
with abdominal distension and reported abd discomfort cannot exclude panceratitis
CT abd
#Ascites
Discuss paracentesis with GI, however challenging with coagulopathy
#GIB most likely 2/2 coagulopathy
follow Hgb - stable
Holding Eliquis
Might need FFP if procedures planned
Follow INR
#Elevated troponin, without chest pain most likely non-ischemic cardiac injury and LENARD-related
#CAD s/p PCI
Cardio consult
Serial troponin
EKG without ST elevation
#thrombocytopenia 2/2 liver cirrhosis
#minimal acute blood loss anemia
#mild leukocytosis
Follow CBC
Cannot exclude SBO since ascites and significant abd distension
Start Abx
#Cholelithiasis with thickened gall bladder wall, cannot exclude cholecystitis
Start Zosyn renally dosed
No CBD dilation
GI to follow, might schedule HIDA, however questionable timing with patient awaiting for the transfer
#HLD
hold statin
#BPH
Beal
hold Tamsulosin
DVT ppx - SCDs 2.2 GIB and coagulopathy
FUll code
I have spent at least 75min reviewing chart, test results, communication with consultants and direct patient care
Anticipated Discharge: > 48 hours
Subjective/Interval History
-
Date of Service: December 25, 2023
Objective Data
-
Labs:
Laboratory Results
12/24/23 12/25/23 12/25/23
19:51 00:30 04:36
WBC 12.3 H
Hgb 10.8 L
Hct 28.4 L
Plt Count 85 L D
PT 26.6 H
INR 2.47
APTT 51.0 H
Sodium 135 133 L
Potassium 5.2 H 5.1
Chloride 107 104
Carbon Dioxide 16 L 14 L*
BUN 83 H 89 H
Creatinine 7.4 H* 7.4 H*
Glucose 157 H 171 H
Calcium 6.2 L* 7.1 L
Total Bilirubin 4.9 H
AST 1878 H*
ALT 523 H*
Alkaline Phosphatase 221 H
12/25/23
07:38
WBC
Hgb
Hct
Plt Count
PT Pending
INR Pending
APTT
Sodium
Potassium
Chloride
Carbon Dioxide
BUN
Creatinine
Glucose
Calcium
Total Bilirubin
AST
ALT
Alkaline Phosphatase
Vital Signs:
Vital Signs
Temp Pulse Resp BP Pulse Ox
97.8 F 89 19 107/81 95
12/25/23 04:00 12/25/23 06:06 12/25/23 06:06 12/25/23 06:06 12/24/23 23:16
I&O
12/24/23 12/25/23 12/26/23
06:59 06:59 06:59
Output Total 10
Balance -10 / -10
Review of Systems
-
History Source: Patient
All other systems: Reviewed and negative
Physical Exam
-
General: No Apparent Distress
HEENT: Normocephalic
Respiratory: Clear to Auscultation
Cardiac: Regular Rhythm
GI: Tender and Distended
Genito-urinary: Other (no urine)
Musculoskeletal: No Clubbing, No Cyanosis and No Edema
Skin: Warm
Neuro: Awake, Alert and Oriented (not to time)
Psych: Calm and Apparent Dementia
--- NOTE | 2023-12-25 09:10 | CON.CAR ---
Addendum entered and electronically signed by Ravinder Leigh MD 12/25/23 14:25:
I saw and examined the patient.
The resident's note was reviewed and I agree with the note.
Comment: Complex pt with 7 coronary stents that last of which was placed at [facility] about July 2022 (possibly 2023). He has proximal LAD stenting in the past. Prior AFIB (on Eliquis at dose that will be appropriate on his birthday). He has
complex liver disease and presents with lower left chest/more upper left abdominal pain, altered mental status, severe LENARD, elevated LFTs and abnormal but flat troponin with no ST elevation and no ST depression. Suspect non AL myocardial injury
from his medical disease(s).
He has low voltage on EKG and an echo and more troponins are appropriate.
Original Note:
Consultation
Consultation Request
Date/Time Consultation Requested: 12/24/2023
Date/Time Consultation Performed: 12/25/2023
Reason for Consultation: Elevated troponins
Medical History
-
History of Present Illness:
This is a 78-year-old male with a past medical history of CAD s/p PCI @07/13 , atrial fibrillation on apixaban, hyperlipidemia, COPD, hypertension, coronary artery disease status post PCI to the LAD and RCA on 03/07/2016, prior PCI to the mid
circumflex in 2006 and mid RCA in 2005, mild aortic stenosis, chronic tobacco abuse, TIA, aortic root dilation, DELROY on CPAP, narcoleptic syndrome, mild obesity, and a history of JOHNSON complicated by cirrhosis who presented to with abdominal pain,
diarrhea, nausea, vomiting, weakness and fatigue. Obtained limited history from patient. patient with ongoing symptoms for about a week. Patient with left-sided abdominal pain, poor appetite and has noticed blood in his stool for the past 7 days.
At bedside today, Patient reports shortness of breath at rest. patient denies having any chest pain, palpitations. Evaluation with a EKG on presentation with sinus tachycardia and left axis deviation. His labs were notable for elevated troponin at
0.486, BUN 89, creatinine 7.4. He is currently pending transfer to [facility].
Past Medical History
Past Medical History: Other (coronary artery disease status post PCI to the LAD and RCA on 03/07/2016, prior PCI to the mid circumflex in 2006 and mid RCA in 2005, mild aortic stenosis, chronic tobacco abuse, TIA, aortic root dilation, hypertension,
hyperlipidemia, DELROY on CPAP, narcoleptic syndrome, mild obesity, JOHNSON, gastriti)
Social History
Tobacco: Smoker
Alcohol: None
Family History
Family History: Reviewed & Not Pertinent
Allergies / Home Medications
Allergy/AdvReac Type Severity Reaction Status Date / Time
Sulfa (Sulfonamide Allergy Unknown Unknown Verified 12/24/23 17:50
Antibiotics)
�Medication �Instructions �Recorded �Confirmed �Type
atorvastatin 80 mg tablet 80 mg PO HS High cholesterol 03/07/16 12/24/23 History
multivitamin with minerals-ferrous 1 ea PO DAILY Supplement 03/07/16 12/24/23 History
sulfate 4.5 mg iron tablet (One
Daily Multivitamins with Minerals)
clopidogrel 75 mg tablet 75 mg PO DAILY ##30 03/09/16 12/24/23 Rx
turmeric 400 mg capsule 400 mg PO DAILY Supplement 07/01/22 12/24/23 History
Lactobac no.2-Bifidobac no.1-S. 1 cap PO DAILY 09/13/22 12/24/23 History
thermo 112.5 billion cell capsule
(Visbiome)
alfuzosin 10 mg tablet,extended 10 mg PO DAILY 09/13/22 12/24/23 History
release 24 hr
citalopram 40 mg tablet (Celexa) 40 mg PO DAILY 09/13/22 12/24/23 History
ezetimibe 10 mg tablet (Zetia) 10 mg PO DAILY 09/13/22 12/24/23 History
metoprolol succinate 25 mg 25 mg PO DAILY #30 tabs 09/13/22 12/24/23 Rx
tablet,extended release 24 hr
(Toprol XL)
wheat dextrin 5 gram/7.4 gram oral 5 g PO DAILY 09/13/22 12/24/23 History
powder (Benefiber Healthy Shape)
apixaban 5 mg tablet (Eliquis) 2.5 mg PO DAILY 12/24/23 12/24/23 History
finasteride 5 mg tablet 5 mg PO DAILY 12/24/23 12/24/23 History
Review of Systems
-
All other systems: Negative unless noted
Physical Exam
Vital Signs
Temp Pulse Resp BP Pulse Ox
97.8 F 89 19 105/89 95
12/25/23 04:00 12/25/23 06:06 12/25/23 06:06 12/25/23 08:29 12/24/23 23:16
Lab Results
12/25/23 04:36
12/25/23 04:36
Troponin I 0.486 ng/ml H* 12/25/23 04:36
Physical Exam
General: No Apparent Distress
Respiratory: Clear
Cardiac: S1/S2; Negative Murmur or Rub
GI: Tender and Distended
Psych: Calm
Impression / Plan
-
Impression/plan
#Elevated troponin, likely Non-Ischemic Myocardial Injury
-trend troponin
-Echocardiogram 07/20/2022 with left ventricular ejection fraction 60 to 65%, mild to moderate aortic stenosis
-Repeat Echo
-EKG in AM
-With INR 2.4, Hold Eliquis
#Paroxysmal Atrial Fibrillation -Rate controlled
-Continue Metoprolol
-Hold Eliquis
#Ascites
#Encephalopathy
#Elevated Transaminases
Management per primary team.
--- NOTE | 2023-12-25 10:09 | W.CON.NEPH ---
Consultation
-
Date/Time Consultation Requested: 12/24/232225
Date/Time Consultation Performed: 12/25/23929
Requesting Provider: Jermaine Mishra
Performing Provider: Zaria Estrada
Reason for Consultation: LENARD
Medical History
-
Chief Complaint: Abd pain, n/v/d
History of Present Illness:
78 year old with PMH for CAD s/p stent on plavix, PAF on Eliquis, HTN on BB, , TIA, IBD, DELROY, HLD Zetia and Atorvastatin, CKD3, BPH on Alfuzosin, JOHNSON cirrhosis of Liver, A1AT def note don prior liver biopsy follows with Dr Cates presented on 12/23
with diarrhea, nausea, vomiting for past few days. patient stated left sided abdominal pain and today he noticed blood in his stool. patient stated poor appetite. he was very weak and was not able to walk to the car. On admit his cr was at 8.4,. k
5.4, L acid 6.8 and bicarb 11. this am cr down to 7.4, bicarb 14 and k 5.1, L acid 3.8 with IVF and has no UOP. His baseline cr seem to be 1.2-1.5. He also noted sob at rest with tense abdomen with ascites.
HIs liver enzymes were significantly elevated. He is currently pending transfer to [place].
Past Medical History
PAF, CAD, COPD, TIA, GERD, HTN, Hypercholesterolemia, Valvular Disease (), cirrhosis,EV, A1AT deficiency, MASH, colon polyp, colitis, chronic pancytopenia, DJD, PUD, sleep apnea, naroleptic, h/o long covid, aortic root dilation Lumbar disc
disease, BPH, Sciatica, tobacco abuse, DELROY with hx CPAP obesity gastritis, arthritis )
Past Surgical History: Other (cardiac stent 2022, Laminectomy and TKR)
Social History
Tobacco: Former Smoker
Alcohol: None
Living: Alone
Family History
Family History: Other (son of leukemia, other son and daughter low platelets of unclear cause possible ITP)
Allergies / Home Medications
Allergy/AdvReac Type Severity Reaction Status Date / Time
Sulfa (Sulfonamide Allergy Unknown Unknown Verified 12/24/23 17:50
Antibiotics)
�Medication �Instructions �Recorded �Confirmed �Type
atorvastatin 80 mg tablet 80 mg PO HS High cholesterol 03/07/16 12/24/23 History
multivitamin with minerals-ferrous 1 ea PO DAILY Supplement 03/07/16 12/24/23 History
sulfate 4.5 mg iron tablet (One
Daily Multivitamins with Minerals)
clopidogrel 75 mg tablet 75 mg PO DAILY ##30 03/09/16 12/24/23 Rx
turmeric 400 mg capsule 400 mg PO DAILY Supplement 07/01/22 12/24/23 History
Lactobac no.2-Bifidobac no.1-S. 1 cap PO DAILY Gastrointestinal 09/13/22 12/24/23 History
thermo 112.5 billion cell capsule Issue
(Visbiome)
alfuzosin 10 mg tablet,extended 10 mg PO DAILY Urinary Issue 09/13/22 12/24/23 History
release 24 hr
citalopram 40 mg tablet (Celexa) 40 mg PO DAILY Mental 09/13/22 12/24/23 History
Health/Anxiety
ezetimibe 10 mg tablet (Zetia) 10 mg PO DAILY High Cholesterol 09/13/22 12/24/23 History
metoprolol succinate 25 mg 25 mg PO DAILY #30 tabs 09/13/22 12/24/23 Rx
tablet,extended release 24 hr
(Toprol XL)
wheat dextrin 5 gram/7.4 gram oral 5 g PO DAILY Gastrointestinal Issue 09/13/22 12/24/23 History
powder (Benefiber Healthy Shape)
apixaban 5 mg tablet (Eliquis) 2.5 mg PO DAILY Blood Clot 12/24/23 12/24/23 History
Prevention/Tx
finasteride 5 mg tablet 5 mg PO DAILY Urinary Issue 12/24/23 12/24/23 History
Review of Systems
-
confused, unable to obtain
All other systems: Negative unless noted
Physical Exam
Vital Signs
Vital Signs
Temp Pulse Resp BP Pulse Ox
97.7 F 89 19 105/89 95
12/25/23 07:16 12/25/23 06:06 12/25/23 06:06 12/25/23 08:29 12/24/23 23:16
Lab Results
eGFR 6.93 12/25/23 04:36
Abnormal Lab Results
12/24/23 12/24/23 12/24/23
18:00 19:11 19:51
WBC 12.8 H
RBC 3.47 L
Hgb 12.3 L
Hct 33.4 L
MCV 96.3 H
MCH 35.4 H
MCHC
RDW 17.2 H
Plt Count 113 L
MPV 12.6 H
Absolute Neuts (auto) 10.0 H
Absolute Monos (auto) 1.3 H
Neutrophils % 78.0 H
Lymphocytes % 11.1 L
Monocytes % 10.2 H
PT 26.6 H
APTT 51.0 H
VBG pH
VBG pCO2
VBG pO2
VBG HCO3
Sodium
Potassium 5.4 H
Carbon Dioxide 11 L*
BUN 82 H
Creatinine 8.5 H*
Glucose 102 H
Lactic Acid 6.8 H*
Calcium 7.6 L
Total Bilirubin 5.4 H
Direct Bilirubin 2.8 H
AST 2155 H*
ALT 599 H*
Alkaline Phosphatase 294 H
Ammonia
Troponin I 0.456 H*
Total Protein
Albumin 2.9 L
Lipase 872 H
Urine Ketones
Ur Occult Blood Reflex
Urine Nitrite (Reflex)
Urine Bilirubin
Leukocyte Esterase Rfl
Urine RBC
Urine Bacteria (Reflex)
Urine Glucose
Urine Albumin (Reflex)
Acetaminophen < 10 L
12/24/23 12/24/23 12/24/23
20:54 21:04 21:30
WBC
RBC
Hgb
Hct
MCV
MCH
MCHC
RDW
Plt Count
MPV
Absolute Neuts (auto)
Absolute Monos (auto)
Neutrophils %
Lymphocytes %
Monocytes %
PT
APTT
VBG pH 7.26 L
VBG pCO2 32 L
VBG pO2 54 H
VBG HCO3 14.4 L
Sodium
Potassium
Carbon Dioxide
BUN
Creatinine
Glucose
Lactic Acid
Calcium
Total Bilirubin
Direct Bilirubin
AST
ALT
Alkaline Phosphatase
Ammonia 41 H
Troponin I
Total Protein
Albumin
Lipase
Urine Ketones Trace A
Ur Occult Blood Reflex 4+ A
Urine Nitrite (Reflex) Positive A
Urine Bilirubin 2+ A
Leukocyte Esterase Rfl Trace A
Urine RBC 60-70 A
Urine Bacteria (Reflex) Moderate A
Urine Glucose 1+ A
Urine Albumin (Reflex) 3+ A
Acetaminophen
12/25/23 12/25/23
00:30 04:36
WBC 12.3 H
RBC 2.96 L
Hgb 10.8 L
Hct 28.4 L
MCV 95.9 H
MCH 36.5 H
MCHC 38.0 H
RDW 17.5 H
Plt Count 85 L D
MPV 12.7 H
Absolute Neuts (auto)
Absolute Monos (auto)
Neutrophils %
Lymphocytes %
Monocytes %
PT
APTT
VBG pH
VBG pCO2
VBG pO2
VBG HCO3
Sodium 133 L
Potassium 5.2 H
Carbon Dioxide 16 L 14 L*
BUN 83 H 89 H
Creatinine 7.4 H* 7.4 H*
Glucose 157 H 171 H
Lactic Acid 3.5 H 3.8 H
Calcium 6.2 L* 7.1 L
Total Bilirubin 4.9 H
Direct Bilirubin
AST 1878 H*
ALT 523 H*
Alkaline Phosphatase 221 H
Ammonia
Troponin I 0.426 H* 0.486 H*
Total Protein 5.3 L
Albumin 2.3 L
Lipase 647 H
Urine Ketones
Ur Occult Blood Reflex
Urine Nitrite (Reflex)
Urine Bilirubin
Leukocyte Esterase Rfl
Urine RBC
Urine Bacteria (Reflex)
Urine Glucose
Urine Albumin (Reflex)
Acetaminophen
CXR:
IMPRESSION:
Lungs appear hypoinflated. Discoid atelectasis in the right lower lung.
US abd:
FINDINGS:
Transabdominal grayscale ultrasound of the abdomen was obtained.
The liver is relatively small at 13 cm with a nodular subcapsular contour consistent with cirrhosis.
There is moderate ascites throughout the abdomen and pelvis
The spleen is normal measuring 10.4 x 3.5 x 3.4 cm
There is cholelithiasis.
There is thickening of the gallbladder wall to 3.4 mm likely due to the presence of ascites rather than reflecting cholecystitis
There is no dilatation of the common or intrahepatic ducts.
The common duct measures 4 mm.
The kidneys are normal in size contour and echogenicity bilaterally.
There is no hydronephrosis.
The upper abdominal aorta and upper inferior vena cava are normal.
The pancreas is not well visualized because of overlying bowel gas.
IMPRESSION:
Cirrhosis with moderate ascites
Cholelithiasis with thickening of the gallbladder wall to 3.4 mm likely due to the presence of ascites rather than reflecting cholecystitis
Physical Exam
General: Awake and Nontoxic
HEENT: EOMI, Facial Symmetry and Neck Supple
Respiratory: Other (decreased mild tachypneic)
Cardiac: S1/S2, Regular Rate/Rhythm and Other (tachy)
Breast: Deferred by me
Abdomen: Other (distended and tense)
Musculoskeletal: No Cyanosis and No Edema
Skin: No Rash
Neuro: Nonfocal/Grossly Intact
Psych: Other (difficult to asess , confused )
Data Reviewed
-
Radiology: Report Reviewed by me, Discussed with Physician and Discussed with Family
Labs: Labs Reviewed by me, Discussed with Physician and Discussed with Family
Assessment/Plan
-
IMP:
LENARD wiht CKD-baseline c r1.2-1.5
HAGMA, Lacidosis
Mild hyperkalemia
Transaminitits
decompensated liver cirrhosis
Acute metabolic encephalopathy
Elevated lipase
Ascites
coagulopathy
GIB most likely 2/2 coagulopathy
Elevated troponin
CAD s/p PCI
thrombocytopenia 2/2 liver cirrhosis
minimal acute blood loss anemia
mild leukocytosis
Cholelithiasis with thickened gall bladder wall, cannot exclude cholecystitis
HLD
BPH
mild hyponatremia
plan:
A/w abd pain, n/v/d
LENARD-possible [id number] but can not exclude HRS
UA with hematuria vs UTI, hence unclear if any glomerular disease
no hydro on US but concern with tense ascites
cr slightly better with IVF likely dilutional than improvement
no sig UOP with abdi, add Fena to earlier labs
agree with IV alb, likely cont IVF if CXR neg
mild hyperkalemia improved
L acidosis improving, pending ascitic fluid cx
Bp are soft, use midodrine as needed
If no improvement seen likely HD in next 24hrs
I strongly recommended transfer to [facility]
MEDL score is high 36 as well
Met acidosis, L acid as stated above bicarb IVF if CXR ok if not bicarb pushes as needed
VBG noted Ph 7.26, trying to r/o SBP
all meds dose renally GFR <10ml/min
monitor pancytopenia, AC held too, r/o any bleeding
poor prognosis
d/w GI and family on phone in detail
family do not oppose HD if needed
[2023-12-25 10:38] LABS: INR 2.68; PT 28.4 Sec (11.4-14.6)
[2023-12-25] MEDS: ZOSYN 50 IV (11:38)
[2023-12-25] MEDS: DUPHALAC/CHRONULAC 20 GRAMS PO (11:39)
[2023-12-25] MEDS: FLEXBUMIN 100 IV ×2 (11:39→15:41)
[2023-12-25 11:53] LABS: Body Fluid WBC 35 /CUMM
--- NOTE | 2023-12-25 11:57 | PTCARENOTE ---
assumed care of patient at 0715. see nursing assessment. pt heart rate up as high as [address] Dill and Dr Leigh. toprol not given per bp parameters. abdi inserted per order with only drops of bloody urine. pt seen by gI and nephrology.
iv team contacted for second iv site, coags sent. At [address] scan followed by [facility]. pt ordered for transfer to [facility]. report given to soo Mcdonough rn. pts daughter updated by JULIA amezcua.
[2023-12-25 12:03] LABS: Body Fluid Albumin < 1.0 g/dl; Body Fluid Creatinine 8.1 mg/dl; Body Fluid Protein < 2.0 g/dl
--- NOTE | 2023-12-25 12:04 | CON.INTV ---
Consultation
Consultation Request
Date/Time Consultation Requested: 12/24
Date/Time Consultation Performed: 12/24
Reason for Consultation: Critical care
Medical History
-
History of Present Illness:
History obtained from the patient, also reviewed hospital records, and outpatient records, and from daughter. Patient is a 78-year-old male with history of coronary disease, hypertension, sleep apnea failed outpatient CPAP therapy, who presents on
12/24/2023 with diarrhea and weakness. Patient is not a very good historian, he is mildly confused at this time. He admits to nausea/emesis but digresses during interview. Per daughter, sxs started 12/19/23. Per ED records, patient has been
complaining of shortness of breath, abdominal pain, emesis, diarrhea. Apparently he may have had emesis in the waiting room. Upon arrival, afebrile, pulse 104, breathing at 18, blood pressure 132/89, 96%. Patient was noted to have AST 2155, ALT
599, elevated lactate at 6.8, creatinine 8.5, serum bicarbonate 11. He was given IV fluids, admitted to IMU 12/24/2023. Patient is known by gastroenterology at [facility] and patient was being considered for transfer. Patient was subsequently
transferred to ICU 12/25/2023. We are asked to help from critical care standpoint.
Presently, patient is denying shortness of breath, nausea, chest pain. He appears comfortable but is mildly confused
.
PMH: History of hypertension, hyperlipidemia, COPD, TIA 2016, coronary disease stent 2022 at [facility], [place] with cirrhosis, alpha-1 antitrypsin deficiency, history of peptic ulcer disease/GERD, atrial fibrillation, central sleep apnea intolerant to
CPAP, BPH. History of laminectomy and bilateral knee replacement.
Past Medical History
Past Medical History: None (See above)
Past Surgical History: None (See above)
Social History
Tobacco: Former Smoker (20+ pack year, quit 2021)
Alcohol: Occasional
Drug: None
Personal:
Living: Alone
Employment: Retired (Managed money, finances)
Family History
Family History: Other (Mother and father in the eighth decade. Siblings are healthy. Records suggest son of leukemia, son/daughter with history of ITP)
Allergies / Home Medications
Allergies
Allergy/AdvReac Type Severity Reaction Status Date / Time
Sulfa (Sulfonamide Allergy Unknown Unknown Verified 12/24/23 17:50
Antibiotics)
Home Medications
�Medication �Instructions �Recorded �Confirmed �Last Taken �Type
atorvastatin 80 mg tablet 80 mg PO HS High cholesterol 03/07/16 12/24/23 03/06/16 History
multivitamin with minerals-ferrous 1 ea PO DAILY Supplement 03/07/16 12/24/23 09/13/22 History
sulfate 4.5 mg iron tablet (One
Daily Multivitamins with Minerals)
clopidogrel 75 mg tablet 75 mg PO DAILY ##30 03/09/16 12/24/23 09/13/22 Rx
turmeric 400 mg capsule 400 mg PO DAILY Supplement 07/01/22 12/24/23 09/13/22 History
Lactobac no.2-Bifidobac no.1-S. 1 cap PO DAILY Gastrointestinal 09/13/22 12/24/23 Unknown History
thermo 112.5 billion cell capsule Issue
(Visbiome)
alfuzosin 10 mg tablet,extended 10 mg PO DAILY Urinary Issue 09/13/22 12/24/23 Unknown History
release 24 hr
citalopram 40 mg tablet (Celexa) 40 mg PO DAILY Mental 09/13/22 12/24/23 Unknown History
Health/Anxiety
ezetimibe 10 mg tablet (Zetia) 10 mg PO DAILY High Cholesterol 09/13/22 12/24/23 09/13/22 History
metoprolol succinate 25 mg 25 mg PO DAILY #30 tabs 09/13/22 12/24/23 Unknown Rx
tablet,extended release 24 hr
(Toprol XL)
wheat dextrin 5 gram/7.4 gram oral 5 g PO DAILY Gastrointestinal Issue 09/13/22 12/24/23 Unknown History
powder (Benefiber Healthy Shape)
apixaban 5 mg tablet (Eliquis) 2.5 mg PO DAILY Blood Clot 12/24/23 12/24/23 Unknown History
Prevention/Tx
finasteride 5 mg tablet 5 mg PO DAILY Urinary Issue 12/24/23 12/24/23 Unknown History
Review of Systems
Vitals / Labs / Diagnostic Testing
Vital Signs
Temp Pulse Resp BP Pulse Ox
97.6 F 96 20 110/72 94
12/25/23 10:00 12/25/23 10:50 12/25/23 10:50 12/25/23 10:50 12/25/23 10:50
Laboratory Results
12/24/23 12/25/23
19:51 09:11
PT 26.6 H 28.4 H
INR 2.47 2.68
APTT 51.0 H
Diagnostic Testing:
Physical Exam
-
HEENT: Normocephalic and Anicteric (Mild jaundice)
Cardiovascular: S1/S2, Regular Rhythm, Murmur (n), Rub (n) and Peripheral Edema (n)
Respiratory: Wheeze (n), Rales (n), Rhonchi (n) and Non-Labored Respirations
GI: Soft, Distended and Non Tender
Neurology: Awake, Alert and Other (Cranial nerves nonfocal but disoriented to year and president.)
Skin: Other (No warmth, no cyanosis) and Other
General: Comfortable
Assessment
-
78-year-old male with complex medical history including hypertension, coronary disease with history of LAD stent 2022 ([facility]), severe sleep apnea, intolerant to CPAP, awaiting ASV titration, presents with nausea, abdominal pain, emesis. Found to
have acute transaminitis, acute renal failure creatinine 8.5. Patient initially admitted to IMU, subsequently transferred to ICU 12/25/2023. We are asked to help from critical care standpoint
Acute renal failure
Creatinine 8.4
Baseline 1.5
Acute transaminitis
Hyperbilirubinemia, coagulopathy
Ascites
Cholelithiasis with possible cholecystitis
TME
Suspected encephalopathy
Nausea/emesis, abdominal discomfort
Questionable GI bleed
Hyperkalemia
Elevated lactate
Conditions present prior to admission
Coronary disease with stent x 2, LAD 2022
[facility]
History of TIA
Hypertension/hyperlipidemia
MASH cirrhosis
Alpha-1 antitrypsin deficiency
Peptic ulcer disease/GERD
Severe sleep apnea, central apnea
failed CPAP, awaitng ASV
History of narcolepsy
20+ pack year history of smoking quit 2022
Plan/recommendations
Patient with complex medical history
Presently, appears to be comfortable, no evidence of hypotension, hemodynamic compromise
Urine output monitoring, Arnold catheter in place
GI, nephrology correspondence reviewed
Plans for transfer to [facility] noted
Moving forward
Continue with albumin infusion per GI
Plan for diagnostic and therapeutic paracentesis
Pending CT imaging per GI without IV contrast
Continue with empiric antibiotics for now, remains on Zosyn, renally dosed
Hepatic, nephrology workup
Patient at risk for hepatic renal syndrome. Ultrasound negative for hydronephrosis
Patient may require hemodialysis
Bicarbonate therapy
Patient with significant central apnea, total index 48 as outpatient
VBG pH 7.26
Will have BiPAP at bedside as needed and nightly
GI prophylaxis: Patient with history of peptic ulcer disease. Consider adding
DVT prophylaxis: Sequential teds, mechanical prophylaxis for now
Patient remains n.p.o.
Reviewed with critical care nursing, pharmacy, primary service
updated daufgter at length
TCCT 35 min
[2023-12-25 12:17] LABS: Body Fluid Second Tech AMA
--- NOTE | 2023-12-25 12:30 | PTCARENOTE ---
pt. received upgrade orders while in IR; s/p IR completion this RN transported pt. via stretcher from IR to ICU rm 3371 @ 1130. Pt. drowsy, awakens to verbal stimuli; oriented x2, required reorientation to time; confused/forgetful. Bed alarm
active. ANDERSON/able to reposition self in bed. SR on monitor. SpO2 94% on RA. Auscultated dim breath sounds/exp wheeze throughout w crackles @ bases. +BS, abd round/distended/firm/ascites. NPO ex meds. Assisted w mouth care prior to PO medical staff specialist;
no s/s of diff swallowing. Arnold in place draining scant amt of bloody/nicole urine; not enough urine to obtain sample @ this time. #20 R AC w bicarb gtt infusing and #20 L AC w Albumin infusing- see MAR. In contact w [facility]
regarding; awaiting bed placement. Pt.'s daughter/son updated @ bedside regarding plan of care.
--- NOTE | 2023-12-25 13:03 | CM ---
CM reviewed medical records. Plan for transfer to [place] for higher level of care. CM will continue to follow as needed.
--- NOTE | 2023-12-25 13:22 | W.DCSUMMARY ---
Discharge Summary
Discharge Data
Date of Admission: 12/24/23
Date of Discharge: 12/25/23
-
Pending Results: No
Hospital Course
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
elevated transaminases and LENARD
Family reported 7 days of symptoms and no recent NSAIDs or alcohol intake
Accepted for the transfer to [facility] Accepted by , medically stable for transport
I have spent at least 37min discharging the patient
A/P:
#LENARD oliguric with HAGMA, cannot exclude cardiorenal syndrome
#Mild hyperkalemia
Bicarb drip switched to albumin
follow BNP
Beal
Nephro consult
Urine studies
#Dyspnea w/o hypoxia
Hx of smoking, quit in 2022
Duoneb
#Transaminitis, decompensated liver cirrhosis
#Acute metabolic encephalopathy - mild confusion 2/2 liver cirrhosis
Follow LFT
GI consult
Tylenol level neg
Ammonia mildly elevated
Lactulose as per GI
MELDNa 37 - 66% mortality in the next 90 days
MELD labs daily
#Elevated lipase
with abdominal distension and reported abd discomfort cannot exclude pancreatitis
CT abd showed no pancreatitis
#Ascites
Discuss paracentesis with GI, however challenging with coagulopathy
#GIB most likely 2/2 coagulopathy
follow Hgb - stable
Holding Eliquis
Might need FFP if procedures planned
Follow INR
#Elevated troponin, without chest pain most likely non-ischemic cardiac injury and LENARD-related
#CAD s/p PCI
Cardio consult
Serial troponin
EKG without ST elevation
#thrombocytopenia 2/2 liver cirrhosis
#minimal acute blood loss anemia
#mild leukocytosis
Follow CBC
Cannot exclude SBO since ascites and significant abd distension
Start Abx
#Cholelithiasis with thickened gall bladder wall, cannot exclude cholecystitis
Start Zosyn renally dosed
No CBD dilation
GI to follow, might schedule HIDA, however questionable timing with patient awaiting for the transfer
#HLD
hold statin
#Afib, unspecified
Hold eliquis
Telemetry
BB to cont
#BPH
Beal
hold Tamsulosin
#Recent diarrhea
stool studies
DVT ppx - SCDs 2.2 GIB and coagulopathy
FUll code
Discharge Plan
-
Patient Disposition: Acute Care Hospital
Discharge Orders:
Discharge Patient (As Directed); Ordered 12/25/23
Ordered By: Jermaine Dill
Discharge Date and Time
Print Language: ROMANSH
[2023-12-25 13:32] LABS: Urine Sodium 46 mmol/L (30-90)
[2023-12-25 13:33] LABS: Lactic Acid 3.5 mmol/L (0.7-2.0)
[2023-12-25 13:38] LABS: ALT (SGPT) 498 U/L (0-50); Albumin 2.5 g/dl (3.5-5.0); Alkaline Phosphatase 195 U/L (38-126); Blood Urea Nitrogen 94 mg/dl (9-20); Calcium 6.6 mg/dl (8.4-10.2); Carbon Dioxide 22 mmol/L (22-30); Chloride 97 mmol/L (98-107); Estimated Creatinine Clearance 6 ml/min; Glucose 174 mg/dl (70-99); Magnesium 2.9 mg/dl (1.6-2.3); Phosphorus 7.4 mg/dl (2.5-4.5); Potassium 4.4 mmol/L (3.5-5.1); Sodium 132 mmol/L (135-145); Total Bilirubin 4.4 mg/dl (0.2-1.3); Total Protein 5.1 g/dl (6.3-8.2); eGFR 6.04
[2023-12-25] MEDS: DUONEB 3 ML INH (13:38)
[2023-12-25 13:47] LABS: Troponin I 0.431 ng/ml
[2023-12-25 13:48] LABS: INR 3.22; PT 33.4 Sec (11.4-14.6)
[2023-12-25 14:10] LABS: AST (SGOT) 1713 U/L (17-59)
[2023-12-25 14:23] LABS: Urine Protein 711 mg/dl (0-12)
[2023-12-25 14:29] LABS: Hematocrit 24.2 % (39.0-52.0); Hemoglobin 9.3 g/dL (13.0-18.0); Mean Corp Hgb Conc. 38.4 g/dL (33.0-37.0); Mean Corpuscular Hgb 36.8 pg (27.0-31.0); Mean Corpuscular Volume 95.7 fL (80.0-94.0); Red Blood Cell Count 2.53 10^6/uL (4.70-6.10); White Blood Cell Count 11.9 10^3/uL (4.8-10.8)
[2023-12-25 14:30] LABS: Urine Albumin 3+ (Neg - Trace); Urine Bilirubin Negative (Negative); Urine Character Bloody (Clear); Urine Color Red; Urine Glucose Negative (Negative); Urine Ketone Negative (Negative); Urine Leukocyte Negative (Negative); Urine Nitrite Negative (Negative); Urine Occult Blood 3+ (Negative); Urine Specific Gravity 1.015 (<1.030); Urine Urobilinogen Negative (Neg - 1+)
[2023-12-25 14:30] LABS: % Basophils 0.1 % (0-2); % Eosinophils 0.3 % (0-6); % Immature Granulocytes 0.6 % (0-0.5); % Lymphocytes 14.1 % (20.5-51.1); % Monocytes 15.1 % (1.7-9.3); % Neutrophils 69.8 % (42.2-75.2); Absolute Immature Granulocytes 0.1 10^3/uL (0-0.05); Absolute Lymphocytes 1.7 10^3/uL (1.2-3.4); Absolute Monocytes 1.8 10^3/uL (0.1-0.6); Absolute Neutrophils 8.3 10^3/uL (1.4-6.5); Mean Platelet Volume 12.9 fL (7.4-10.4); Nucleated Red Blood Cells % 0 % (-); Platelet Count 69 10^3/uL (130-400); Red Cell Dist. Width 17.3 % (11.5-14.5)
[2023-12-25 15:17] LABS: Osmolality Urine 319 mOsm/kg (300-900)
--- NOTE | 2023-12-25 15:23 | W.PN.UPDATE ---
Update Note
Progress Note Update
Called [facility] and spoke with [facility] [facility] Officer, Dr. Newberry, regarding patient's current condition and ongoing care this afternoon. Recent paracentesis r/o SBP (7 PMNs), however still suspect an infectious etiology as trigger for acute
decompensation resulting in nyphi-ae-edgznri liver failure (ACLF) with MELD3.0 of 35. Patient has been accepted for a bed and pending transfer. Continuing broad-spectrum IV antibiotics along with IV albumin challenge with close monitoring of renal
function. Doppler US still pending to ensure patent vasculature although still suspect shock liver / ischemic hepatitis.
Discussed with patient's daughter, Afsaneh, as well later this afternoon. Addressed all questions and concerns.
GI team will continue to follow closely until patient has been transferred to [place].
Avery Soto,
Department of Gastroenterology
[2023-12-25 15:24] LABS: Urine Squamous Cell 0-2 /LPF (Few)
[2023-12-25 15:25] LABS: Urine Red Blood Cell >100 /HPF (0-2); Urine White Cell 0-2 /HPF (0-5)
[2023-12-25 15:26] LABS: Urine Amorphous Seen
--- NOTE | 2023-12-25 15:57 | PTCARENOTE ---
Critical Ca+ relayed to Dr. Dill- further orders received- see MAR. Received bed assignment from [facility], Report given to Syed Mayen. Ambulance ETA pushed to [id number]. Care ongoing. Family @ bedside updated on plan of
care/pending transfer. Bed alarm remains active. Call lainez in reach,
== END 2023-12-25 19:47 | disposition short-term general hospital (02) | DRG 682 ==
LOC: ICU 21:44
PROVIDERS: Clinical Nurse Specialist Family Health; Emergency Medicine; Nurse Practitioner Adult Health; Radiology Vascular & Interventional Radiology; Registered Nurse; ADMITTING PHYSICIAN Internal Medicine; ATTENDING PHYSICIAN Internal Medicine; CONSULT PHYSICIAN Internal Medicine Critical Care Medicine; EMERGENCY PHYSICIAN Emergency Medicine; FAMILY PHYSICIAN Family Medicine; OTHER PHYSICIAN Internal Medicine; OTHER PHYSICIAN Internal Medicine Cardiovascular Disease; OTHER PHYSICIAN Student in an Organized Health Care Education/Training Program
PROC: 0W9G3ZX Drainage of Peritoneal Cavity, Percutaneous Approach, Diagnostic (ICD-10-PCS; 2023-12-25)
DX: N17.9 Acute kidney failure, unspecified (principal); G93.41 Metabolic encephalopathy; I21.A1 Myocardial infarction type 2; K85.90 Acute pancreatitis without necrosis or infection, unspecified; D61.818 Other pancytopenia; D68.9 Coagulation defect, unspecified; E87.1 Hypo-osmolality and hyponatremia; E87.20 Acidosis, unspecified; J98.11 Atelectasis; K76.6 Portal hypertension; R18.8 Other ascites; K72.90 Hepatic failure, unspecified without coma; D63.8 Anemia in other chronic diseases classified elsewhere; D69.59 Other secondary thrombocytopenia; G47.419 Narcolepsy without cataplexy; I12.9 Hypertensive chronic kidney disease with stage 1 through stage 4 chronic kidney disease, or unspecified chronic kidney disease; I35.0 Nonrheumatic aortic (valve) stenosis; I71.43 Infrarenal abdominal aortic aneurysm, without rupture; J44.9 Chronic obstructive pulmonary disease, unspecified; N18.30 Chronic kidney disease, stage 3 unspecified; E66.9 Obesity, unspecified; Z68.34 Body mass index [BMI] 34.0-34.9, adult; E88.01 Alpha-1-antitrypsin deficiency; K74.60 Unspecified cirrhosis of liver; K75.81 Nonalcoholic steatohepatitis (NASH); E78.00 Pure hypercholesterolemia, unspecified; E87.5 Hyperkalemia; F17.200 Nicotine dependence, unspecified, uncomplicated; F41.9 Anxiety disorder, unspecified; G47.33 Obstructive sleep apnea (adult) (pediatric); I25.10 Atherosclerotic heart disease of native coronary artery without angina pectoris; I48.0 Paroxysmal atrial fibrillation; K21.9 Gastro-esophageal reflux disease without esophagitis; K31.89 Other diseases of stomach and duodenum; K80.20 Calculus of gallbladder without cholecystitis without obstruction; M19.90 Unspecified osteoarthritis, unspecified site; M51.9 Unspecified thoracic, thoracolumbar and lumbosacral intervertebral disc disorder; M54.30 Sciatica, unspecified side; N40.0 Benign prostatic hyperplasia without lower urinary tract symptoms; Z79.01 Long term (current) use of anticoagulants; Z79.02 Long term (current) use of antithrombotics/antiplatelets; Z79.899 Other long term (current) drug therapy; Z95.5 Presence of coronary angioplasty implant and graft; Z86.73 Personal history of transient ischemic attack (TIA), and cerebral infarction without residual deficits; Z87.19 Personal history of other diseases of the digestive system; Z86.010 Personal history of colon polyps; Z87.11 Personal history of peptic ulcer disease; Z96.653 Presence of artificial knee joint, bilateral; Z88.2 Allergy status to sulfonamides
CPT/HCPCS: 49083; 71045; 71046; 74176; 76700; 80048; 80053; 80143; 80306; 81003; 81015; 82042; 82140; 82150; 82248; 82570; 82805; 83605; 83690; 83735; 83935; 84100; 84156; 84157; 84300; 84484; 85025; 85027; 85610; 85730; 86704; 86705; 86706; 86708; 86709; 86803; 87015; 87040; 87070; 87086; 87205; 87340; 87811; 89051; 93005; 94640; 94660; 96360; 96361; 99285; J0132; J7030; P9047